=== PATIENT | male | born 1940 | race Caucasian/White ===

== ENCOUNTER → 2017-01-24 | Day surgery (SDC) | payer MEDICARE ==
[2017-01-18 10:24] VITALS: BMI 26.0
[~2017-01-24] MED LIST: BALANCED SALT IRRIG SOLN COMB2 15 ML IRRIG.SOLN IRRIGATION ONE; BUPIVACAINE (PF) 0.75% 5 ML, LIDOCAINE 4% (PF) 5 ML, HYALURONIDASE, HUMAN RECOMB 150 UNIT MISCELLANE ONE; EPINEPHrine (PF) 0.5 ML in BALANCED SALT IRRIG SOLN COMB2 500 ML IRRIGATION ONE; GENTAMICIN/PREDNISOL AC OPHTH OINT 3.5GM OPHTHALMIC ONE; HYALURONATE SODIUM INTRAOCULAR 1 EACH SYRINGE (10MG/ML) INTRAOCULA ONE; LACTATED RINGERS 1,000 ML IV SCH; LIDOCAINE 1% 20 ML VIAL (10MG/ML) FOR IV START INTRADERMA PRN; PROPOFOL 10 MG/ML 20 ML VIAL IV ONE; TIMOLOL 0.5% OPHTH SOLN (PF) 0.2 ML DROPERETTE OP ONE
[2017-01-24] MEDS: PHENYLEPHRINE 10% OPHTH DROPS 5 ML BTL OP ONE ×3 (10:29→10:42)
[2017-01-24] MEDS: CYCLOPENTOLATE 1% OPHTH SOLN 2 ML BTL OP ONE ×3 (10:31→10:44)
[2017-01-24] MEDS: FLURBIPROFEN 0.03% OPHTH DROPS 2.5 ML BTL OP ONE ×3 (10:33→10:46)
[2017-01-24 10:49] VITALS: TEMP 97.7
--- NOTE | 2017-01-24 12:34 | P.OP ---
Date of Procedure: 01/24/17 Preoperative Diagnosis: Postoperative Diagnosis: Procedure(s) Performed: PREOPERATIVE DIAGNOSIS: Cataract, left eye, Glaucoma, left eye POSTOPERATIVE DIAGNOSIS: Cataract, left eye Glaucoma, left eye. OPERATION: Phacoemulsification cataract, left eye. Placement of iStent, left eye. DESCRIPTION OF PROCEDURE: The patient was taken to the preoperative holding area. Intravenous Propofol was given so as to bring about adequate sedation. The following mixture was given for local anesthesia: 5 mL of 2% lidocaine, 5 mL of 0.75% Marcaine, and 1 mL of Wydase. Approximately 4 mL was injected in the retrobulbar space of the surgical eye. Additional 1 mL was then directed to the temporal area of the surgical eye. This was performed to allow adequate neurological block of the facial muscles. The patient was revived and then taken into the operative room. The patient was prepped and draped in the usual sterile manner for the operative eye. A lid speculum was put into position. The conjunctiva was resected back from the limbus in the 12 o'clock position. Bleeding was controlled with electrocautery. A #69 blade was then used and a half-thickness scleral incision approximately 1-mm posterior to the limbus was made on bare sclera. This was shelved in the clear cornea using a crescent knife. Next a 15-degree blade was used to make a stab incision at the 3 o' clock position at the corneolimbal interface. Keratome blade was then used and the superior wound was extended into the anterior chamber. Viscoelastic was injected into the anterior chamber and to maintain its form. The iStent was grasped and inserted into the inferior angle of the eye without difficulty. Next, a cystotome was used and a continuous anterior capsulotomy was made without difficulty. Hydrodissection using a blunt cannula and BSS was performed. Phaco probe was then employed and a groove extending from 12 to 6 o' clock in the lens was created. A Fitz wand was used through the stab incision so as to perform a divide and conquer technique. Next an irrigation aspiration probe was utilized and any residual cortex was removed from the eye. Again, viscoelastic was injected into the anterior chamber. An Christopher posterior chamber lens implant was placed in the cartridge and injected into the anterior chamber without difficulty. The Sinskey hook was utilized to spin the lens into position and this was again performed without any difficulty. The irrigation and aspiration probe was again employed and any residual viscoelastic was removed from the eye. Then BSS was injected into the limbal stab incision and the anterior chamber re-inflated. The conjunctiva was reapproximated using electrocautery. One drop of 0.25% Timoptic was placed over the corneal along with TobraDex ophthalmic ointment. Two sterile patches and a Jerome eye shield were taped into position. The patient was transported to the recovery room in stable condition. Implants: Pathology: none sent Condition: stable Disposition: same day Indications for Procedure: Operative Findings: Description of Procedure:
[2017-01-24 12:46] VITALS: RESP 18
[2017-01-24 13:02] VITALS: BP 163/73; PULSE 61
== END | disposition home or self-care (01) ==
LOC: OR 09:35
PROVIDERS: ATTEND Ophthalmology
DX: H26.9 Unspecified cataract (principal); H40.9 Unspecified glaucoma; Z79.82 Long term (current) use of aspirin; Z79.899 Other long term (current) drug therapy
CPT/HCPCS: 66984; 66183; V2632; C1783; J2001; J3470; J0171; J2704

== ENCOUNTER 2017-04-04 10:37 | Day surgery (SDC) | payer MEDICARE ==
[2017-03-31 09:12] VITALS: BMI 25.7
[~2017-04-04 10:37] MED LIST changes: -BALANCED SALT IRRIG SOLN COMB2 15 ML IRRIG.SOLN IRRIGATION ONE; -BUPIVACAINE (PF) 0.75% 5 ML, LIDOCAINE 4% (PF) 5 ML, HYALURONIDASE, HUMAN RECOMB 150 UNIT MISCELLANE ONE; -EPINEPHrine (PF) 0.5 ML in BALANCED SALT IRRIG SOLN COMB2 500 ML IRRIGATION ONE; -GENTAMICIN/PREDNISOL AC OPHTH OINT 3.5GM OPHTHALMIC ONE; -HYALURONATE SODIUM INTRAOCULAR 1 EACH SYRINGE (10MG/ML) INTRAOCULA ONE; -LIDOCAINE 1% 20 ML VIAL (10MG/ML) FOR IV START INTRADERMA PRN; -PROPOFOL 10 MG/ML 20 ML VIAL IV ONE; -TIMOLOL 0.5% OPHTH SOLN (PF) 0.2 ML DROPERETTE OP ONE
[2017-04-04] MEDS: CYCLOPENTOLATE 1% OPHTH SOLN 2 ML BTL OP ONE ×2 (11:35→11:44)
[2017-04-04] MEDS: PHENYLEPHRINE 10% OPHTH DROPS 5 ML BTL OP ONE ×2 (11:38→11:47)
[2017-04-04] MEDS: KETOROLAC 0.5% OPHTH DROPS 5 ML BTL OP ONE ×2 (11:41→12:01)
[2017-04-04 11:42] VITALS: RESP 18; TEMP 98.1
[2017-04-04] MEDS ORDERED: LIDOCAINE 1% INJ 10MG/ML (20 ML MDV) ONE (12:53)
[2017-04-04] MEDS ORDERED: PROPOFOL 10 MG/ML 20 ML VIAL IV ONE (12:53)
[2017-04-04] MEDS ORDERED: HYALURONATE SODIUM INTRAOCULAR 1 EACH SYRINGE (10MG/ML) INTRAOCULA ONE ×2 (12:56)
[2017-04-04] MEDS ORDERED: TIMOLOL 0.5% OPHTH SOLN (PF) 0.2 ML DROPERETTE RIGHT EYE ONE (12:56)
[2017-04-04] MEDS ORDERED: BALANCED SALT IRRIG SOLN COMB2 15 ML IRRIG.SOLN INTRAOCULA ONE (12:56)
[2017-04-04] MEDS ORDERED: EPINEPHrine (PF) 0.5 ML in BALANCED SALT IRRIG SOLN COMB2 500 ML IRRIGATION ONE (12:57)
--- NOTE | 2017-04-04 13:23 | P.OP ---
Date of Procedure: 04/04/17 Procedure(s) Performed: PREOPERATIVE DIAGNOSIS: Cataract, right eye. Glaucoma, right eye POSTOPERATIVE DIAGNOSIS: Cataract, right eye. Glaucoma, right eye. OPERATION: Phacoemulsification of cataract, placement of intraocular lens, placement of I-stent, right eye. DESCRIPTION OF PROCEDURE: The patient was taken to the preoperative holding area. Intravenous Propofol was given so as to bring about adequate sedation. The following mixture was given for local anesthesia: 5 mL of 2% lidocaine, 5 mL of 0.75% Marcaine, and 1 mL of Wydase. Approximately 4 mL was injected in the retrobulbar space of the surgical eye. Additional 1 mL was then directed to the temporal area of the surgical eye. This was performed to allow adequate neurological block of the facial muscles. The patient was revived and then taken into the operative room. The patient was prepped and draped in the usual sterile manner for the operative eye. A lid speculum was put into position. The conjunctiva was resected back from the limbus in the 12 o'clock position. Bleeding was controlled with electrocautery. A #69 blade was then used and a half-thickness scleral incision approximately 1-mm posterior to the limbus was made on bare sclera. This was shelved in the clear cornea using a crescent knife. Next a 15-degree blade was used to make a stab incision at the 3 o' clock position at the corneolimbal interface. Keratome blade was then used and the superior wound was extended into the anterior chamber. Viscoelastic was injected into the anterior chamber and to maintain its form. Using an angled gonioprism for guidance, an I-stent was placed in the inferior Schlemm's canal and tested for proper positioning. Next, a cystotome was used and a continuous anterior capsulotomy was made without difficulty. Hydrodissection using a blunt cannula and BSS was performed. Phaco probe was then employed and a groove extending from 12 to 6 o'clock in the lens was created. A Fitz wand was used through the stab incision so as to perform a divide and conquer technique. Next an irrigation aspiration probe was utilized and any residual cortex was removed from the eye. Again, viscoelastic was injected into the anterior chamber. An Christopher posterior chamber lens implant was placed in the cartridge and injected into the anterior chamber without difficulty. The Humansizedey hook was utilized to spin the lens into position and this was again performed without any difficulty. The irrigation and aspiration probe was again employed and any residual viscoelastic was removed from the eye. Then BSS was injected into the limbal stab incision and the anterior chamber re- inflated. The conjunctiva was reapproximated using electrocautery. One drop of 0.25% Timoptic was placed over the corneal along with TobraDex ophthalmic ointment. Two sterile patches and a Jerome eye shield were taped into position. The patient was transported to the recovery room in stable condition. Pathology: none sent Condition: stable Disposition: same day
[2017-04-04 13:44] VITALS: BP 147/65; PULSE 58
[2017-04-04] MEDS ORDERED: BUPIVACAINE (PF) 0.75% 5 ML, LIDOCAINE 4% (PF) 5 ML, HYALURONIDASE, HUMAN RECOMB 150 UNIT MISCELLANE ONE ×3 (23:00)
[2017-04-04] MEDS ORDERED: GENTAMICIN/PREDNISOL AC OPHTH OINT 3.5GM OPHTHALMIC ONE (23:00)
[2017-04-04] MEDS ORDERED: TIMOLOL 0.5% OPHTH SOLN (PF) 0.2 ML DROPERETTE OP ONE (23:00)
== END 2017-04-04 14:04 | disposition home or self-care (01) ==
LOC: OR 10:37
PROVIDERS: ATTEND Ophthalmology
DX: H26.9 Unspecified cataract (principal); H40.9 Unspecified glaucoma; N40.0 Benign prostatic hyperplasia without lower urinary tract symptoms; Z79.82 Long term (current) use of aspirin; Z79.899 Other long term (current) drug therapy; Z98.42 Cataract extraction status, left eye; Z96.1 Presence of intraocular lens
CPT/HCPCS: 0191T; 66984

== ENCOUNTER 2017-07-08 22:28 | Emergency (ER) | payer MEDICARE ==
--- NOTE | 2017-07-08 22:41 | ED ---
General Adult HPI - General Chief complaint: Dizziness Stated complaint: Elevated BP Time Seen by Provider: 07/08/17 22:40 Source: patient, family, RN notes reviewed, old records reviewed Mode of arrival: ambulatory Limitations: no limitations - History of Present Illness Initial comments: This is a 77-year-old male to the ER for evaluation today. Patient coming in for evaluation of dizziness. They're to 5 days of dizziness, episodic occasional. Patient states he has had history of vertigo and is been told multiple times needs to start blood pressure medication. Patient denies chest pain shortness of breath or headache. Patient states he gets a little bit of dizziness when he stands up or changes position. No headaches. No recent change in medication, denies drugs or alcohol - Related Data Home Medications Medication Instructions Recorded Confirmed Aspirin [Adult Low Dose Aspirin EC] 81 mg PO DAILY 01/18/17 07/08/17 Ginkgo Biloba [place] Extract [Ginkgo] 120 mg PO DAILY 01/18/17 07/08/17 Latanoprost Ophth [Xalatan 0.005%] 1 drops BOTH EYES HS 01/18/17 07/08/17 Tamsulosin HCl [Flomax] 0.4 mg PO HS 01/18/17 07/08/17 Allergies Allergy/AdvReac Type Severity Reaction Status Date / Time No Known Allergies Allergy Verified 07/08/17 22:36 Review of Systems ROS Statement: Those systems with pertinent positive or pertinent negative responses have been documented in the HPI. ROS Other: All systems not noted in ROS Statement are negative. Past Medical History Past Medical History: Prostate Disorder, Skin Disorder Additional Past Medical History / Comment(s): hx migraines, ezcema History of Any Multi-Drug Resistant Organisms: None Reported Past Surgical History: Adenoidectomy, Orthopedic Surgery, Tonsillectomy Additional Past Surgical History / Comment(s): duarte knee arthroscopy Past Anesthesia/Blood Transfusion Reactions: No Reported Reaction Past Psychological History: No Psychological Hx Reported Smoking Status: Former smoker Past Alcohol Use History: None Reported Past Drug Use History: None Reported - Past Family History Mother Family Medical History: No Reported History General Exam Limitations: no limitations General appearance: alert, in no apparent distress Head exam: Present: atraumatic, normocephalic, normal inspection Eye exam: Present: normal appearance, PERRL, EOMI. Absent: scleral icterus, conjunctival injection, periorbital swelling ENT exam: Present: normal exam, mucous membranes moist Neck exam: Present: normal inspection. Absent: tenderness, meningismus, lymphadenopathy Respiratory exam: Present: normal lung sounds bilaterally. Absent: respiratory distress, wheezes, rales, rhonchi, stridor Cardiovascular Exam: Present: regular rate, normal rhythm, normal heart sounds. Absent: systolic murmur, diastolic murmur, rubs, gallop, clicks GI/Abdominal exam: Present: soft, normal bowel sounds. Absent: distended, tenderness, guarding, rebound, rigid Extremities exam: Present: normal inspection, full ROM, normal capillary refill. Absent: tenderness, pedal edema, joint swelling, calf tenderness Back exam: Present: normal inspection Neurological exam: Present: alert, oriented X3, CN II-XII intact Psychiatric exam: Present: normal affect, normal mood Skin exam: Present: warm, dry, intact, normal color. Absent: rash Course Vital Signs 07/08/17 07/08/17 07/08/17 22:32 22:54 23:51 Temperature 97.4 F L Pulse Rate 82 80 71 Respiratory 18 18 16 Rate Blood Pressure 184/86 194/87 152/72 O2 Sat by Pulse 99 98 99 Oximetry - Reevaluation(s) Reevaluation #1: 07/09/17 00:37 Patient symptoms are resolved, improved Medical Decision Making - Medical Decision Making 77 male the ER for dizziness. New-onset dizziness. New-onset elevated blood pressure. Patient be treated for blood pressure 1, CT labwork is normal EKG negative. Patient can be discharged home - Lab Data Result diagrams: 07/08/17 22:40 07/08/17 22:40 Lab Results 07/08/17 07/08/17 07/08/17 Range/Units 22:40 22:40 22:40 WBC 8.8 (3.8-10.6) k/uL RBC 4.81 (4.30-5.90) m/uL Hgb 14.0 (13.0-17.5) gm/dL Hct 43.2 (39.0-53.0) % MCV 89.7 (80.0-100.0) fL MCH 29.1 (25.0-35.0) pg MCHC 32.4 (31.0-37.0) g/dL RDW 14.0 (11.5-15.5) % Plt Count 207 (150-450) k/uL Neutrophils % 76 % Lymphocytes % 14 % Monocytes % 5 % Eosinophils % 2 % Basophils % 1 % Neutrophils # 6.7 (1.3-7.7) k/uL Lymphocytes # 1.3 (1.0-4.8) k/uL Monocytes # 0.4 (0-1.0) k/uL Eosinophils # 0.2 (0-0.7) k/uL Basophils # 0.1 (0-0.2) k/uL PT (9.0-12.0) sec INR (<1.2) APTT (22.0-30.0) sec Sodium 140 (137-145) mmol/L Potassium 4.3 (3.5-5.1) mmol/L Chloride 102 (98-107) mmol/L Carbon Dioxide 29 (22-30) mmol/L Anion Gap 9 mmol/L BUN 28 H (9-20) mg/dL Creatinine 1.10 (0.66-1.25) mg/dL Est GFR (MDRD) Af Amer >60 (>60 ml/min/1.73 sqM) Est GFR (MDRD) Non-Af >60 (>60 ml/min/1.73 sqM) Glucose 125 H (74-99) mg/dL Calcium 9.9 (8.4-10.2) mg/dL Phosphorus 3.5 (2.5-4.5) mg/dL Magnesium 2.0 (1.6-2.3) mg/dL Total Bilirubin 0.3 (0.2-1.3) mg/dL AST 21 (17-59) U/L ALT 38 (21-72) U/L Alkaline Phosphatase 108 (38-126) U/L Total Creatine Kinase 58 (55-170) U/L CK-MB (CK-2) 1.1 (0.0-2.4) ng/mL CK-MB (CK-2) Rel Index 1.9 Troponin I 0.012 (0.000-0.034) ng/mL Total Protein 6.9 (6.3-8.2) g/dL Albumin 4.3 (3.5-5.0) g/dL 07/08/17 Range/Units 22:40 WBC (3.8-10.6) k/uL RBC (4.30-5.90) m/uL Hgb (13.0-17.5) gm/dL Hct (39.0-53.0) % MCV (80.0-100.0) fL MCH (25.0-35.0) pg MCHC (31.0-37.0) g/dL RDW (11.5-15.5) % Plt Count (150-450) k/uL Neutrophils % % Lymphocytes % % Monocytes % % Eosinophils % % Basophils % % Neutrophils # (1.3-7.7) k/uL Lymphocytes # (1.0-4.8) k/uL Monocytes # (0-1.0) k/uL Eosinophils # (0-0.7) k/uL Basophils # (0-0.2) k/uL PT 10.0 (9.0-12.0) sec INR 1.0 (<1.2) APTT 24.0 (22.0-30.0) sec Sodium (137-145) mmol/L Potassium (3.5-5.1) mmol/L Chloride (98-107) mmol/L Carbon Dioxide (22-30) mmol/L Anion Gap mmol/L BUN (9-20) mg/dL Creatinine (0.66-1.25) mg/dL Est GFR (MDRD) Af Amer (>60 ml/min/1.73 sqM) Est GFR (MDRD) Non-Af (>60 ml/min/1.73 sqM) Glucose (74-99) mg/dL Calcium (8.4-10.2) mg/dL Phosphorus (2.5-4.5) mg/dL Magnesium (1.6-2.3) mg/dL Total Bilirubin (0.2-1.3) mg/dL AST (17-59) U/L ALT (21-72) U/L Alkaline Phosphatase (38-126) U/L Total Creatine Kinase (55-170) U/L CK-MB (CK-2) (0.0-2.4) ng/mL CK-MB (CK-2) Rel Index Troponin I (0.000-0.034) ng/mL Total Protein (6.3-8.2) g/dL Albumin (3.5-5.0) g/dL - Radiology Data Radiology results: report reviewed (CT brain is negative), image reviewed Disposition Clinical Impression: Hypertension, Dizziness Disposition: HOME SELF-CARE Condition: Good Instructions: Dizziness (ED), Hypertension (ED) Referrals: Milena Linton MD [Primary Care Provider] - 1-2 days
[2017-07-08] MEDS ORDERED: LABETALOL 5 MG/ML VIAL MDV IVP STA (23:06)
[2017-07-08] MEDS ORDERED: SODIUM CHLORIDE 0.9% 1,000 ML IV STA (23:06)
[2017-07-08 23:17] LABS: Basophils # (A) 0.1 k/uL (0-0.2); Basophils % (A) 1 %; Eosinophils # (A) 0.2 k/uL (0-0.7); Eosinophils % (A) 2 %; HCT 43.2 % (39.0-53.0); Lymphocytes # (A) 1.3 k/uL (1.0-4.8); Lymphocytes % (A) 14 %; MCH 29.1 pg (25.0-35.0); MCHC 32.4 g/dL (31.0-37.0); MCV 89.7 fL (80.0-100.0); Mean Platelet Volume 7.2; Monocytes # (A) 0.4 k/uL (0-1.0); Monocytes % (A) 5 %; Neutrophils # (A) 6.7 k/uL (1.3-7.7); Neutrophils % (A) 76 %; Platelet Count 207 k/uL (150-450); RBC 4.81 m/uL (4.30-5.90); WBC 8.8 k/uL (3.8-10.6)
[2017-07-08 23:34] LABS: ALT 38 U/L (21-72); AST 21 U/L (17-59); Albumin 4.3 g/dL (3.5-5.0); Alkaline Phosphatase 108 U/L (38-126); Anion Gap 9 mmol/L; Blood Urea Nitrogen 28 mg/dL (9-20); Calcium 9.9 mg/dL (8.4-10.2); Carbon Dioxide 29 mmol/L (22-30); Chloride 102 mmol/L (98-107); Glucose 125 mg/dL (74-99); Phosphorus 3.5 mg/dL (2.5-4.5); Sodium 140 mmol/L (137-145); Total Bilirubin 0.3 mg/dL (0.2-1.3); Total Protein 6.9 g/dL (6.3-8.2)
[2017-07-08 23:37] LABS: Potassium 4.3 mmol/L (3.5-5.1)
--- NOTE | 2017-07-08 23:51 | CT ---
EXAM: CT Head Without Intravenous Contrast. CLINICAL HISTORY: Reason: weakness TECHNIQUE: Axial computed tomography images of the head/brain without intravenous contrast. CTDI is 13.7 mGy and DLP is 57.4 mGy-cm. This CT exam was performed using one or more of the following dose reduction techniques: automated exposure control, adjustment of the mA and/or kV according to patient size, and/or use of iterative reconstruction technique. COMPARISON: No relevant prior studies available. FINDINGS: Brain: Unremarkable. No hemorrhage. No significant white matter disease. No edema. Ventricles: Unremarkable. No ventriculomegaly. Bones: No acute fracture. Sinuses: Unremarkable as visualized. No acute sinusitis. Mastoid air cells: Unremarkable as visualized. No mastoid effusion. IMPRESSION: No acute intracranial abnormality.
[2017-07-08 23:57] LABS: Creatine Kinase MB 1.1 ng/mL (0.0-2.4)
[2017-07-09 00:01] LABS: Troponin I 0.012 ng/mL (0.000-0.034)
[2017-07-09 01:02] VITALS: BP 164/79; PULSE 72; RESP 15; TEMP 98.1
== END 2017-07-09 00:57 | disposition home or self-care (01) ==
LOC: EC 22:28
DX: I10 Essential (primary) hypertension (principal); R42 Dizziness and giddiness; Z86.69 Personal history of other diseases of the nervous system and sense organs; Z87.891 Personal history of nicotine dependence; Z79.82 Long term (current) use of aspirin; Z79.899 Other long term (current) drug therapy
CPT/HCPCS: 36415; 70450; 80053; 82550; 82553; 83735; 84100; 84484; 85025; 85610; 85730; 93005; 96361; 96374; 99285

== ENCOUNTER → 2017-09-20 | Outpatient (CLI) | payer MEDICARE ==
--- NOTE | 2017-09-20 09:29 | XR ---
EXAMINATION TYPE: XR chest 2V DATE OF EXAM: 09/20/2017 COMPARISON: NONE HISTORY: Physical examination TECHNIQUE: Frontal and lateral views of the chest are obtained. FINDINGS: There is no focal air space opacity, pleural effusion, or pneumothorax seen. The cardiac silhouette size is within normal limits. The osseous structures are intact. Biapical pleural thicke rosina is incidentally noted. Multilevel degenerative changes of the thoracic spine are seen. There is tortuosity of the descending thoracic aorta. IMPRESSION: No acute cardiopulmonary process.
[2017-09-20 09:58] LABS: Basophils # (A) 0.1 k/uL (0-0.2); Basophils % (A) 1 %; Eosinophils # (A) 0.2 k/uL (0-0.7); Eosinophils % (A) 4 %; HCT 43.4 % (39.0-53.0); HGB 14.2 gm/dL (13.0-17.5); Lymphocytes # (A) 1.1 k/uL (1.0-4.8); Lymphocytes % (A) 20 %; MCH 28.7 pg (25.0-35.0); MCHC 32.7 g/dL (31.0-37.0); MCV 87.9 fL (80.0-100.0); Mean Platelet Volume 6.9; Monocytes # (A) 0.3 k/uL (0-1.0); Monocytes % (A) 6 %; Neutrophils # (A) 3.6 k/uL (1.3-7.7); Neutrophils % (A) 66 %; Platelet Count 188 k/uL (150-450); RBC 4.94 m/uL (4.30-5.90); WBC 5.5 k/uL (3.8-10.6)
[2017-09-20 10:02] LABS: ALT 21 U/L (21-72); AST 17 U/L (17-59); Alkaline Phosphatase 87 U/L (38-126); Anion Gap 8 mmol/L; Blood Urea Nitrogen 26 mg/dL (9-20); Calcium 9.8 mg/dL (8.4-10.2); Carbon Dioxide 31 mmol/L (22-30); Chloride 102 mmol/L (98-107); Cholesterol 190 mg/dL (<200); Creatine Kinase 46 U/L (55-170); Glucose 115 mg/dL (74-99); HDL Cholesterol 56 mg/dL (40-60); LDL Cholesterol,Calculated 119 mg/dL (0-99); Potassium 5.1 mmol/L (3.5-5.1); Sodium 141 mmol/L (137-145); Total Bilirubin 0.5 mg/dL (0.2-1.3); Total Protein 6.5 g/dL (6.3-8.2); Triglycerides 77 mg/dL (<150); Uric Acid 5.4 mg/dL (3.5-8.5)
[2017-09-20 11:47] LABS: C Reactive Protein <5.0 mg/L (<10.0)
[2017-09-20 14:01] LABS: Erythrocyte Sedimentation Rate 5 mm/hr (0-15)
[2017-09-20 16:18] LABS: Vitamin D 25 Hydroxy 23.3 ng/mL (30.0-100.0)
[2017-09-20 17:24] LABS: Hepatitis C IgG Antibody Non-Reactive (Non-Reactive)
[2017-09-20 22:55] LABS: Hemoglobin A1C 6.1 % (4.0-6.0)
== END | disposition home or self-care (01) ==
LOC: LABWHC1 08:41
PROVIDERS: ATTEND Internal Medicine
DX: J44.9 Chronic obstructive pulmonary disease, unspecified (principal); I27.20 Pulmonary hypertension, unspecified; E55.9 Vitamin D deficiency, unspecified; E78.5 Hyperlipidemia, unspecified; N40.0 Benign prostatic hyperplasia without lower urinary tract symptoms
CPT/HCPCS: 36415; 71046; 80053; 80061; 82306; 82550; 83036; 84153; 84443; 84550; 85025; 85652; 86140; 86803

== ENCOUNTER → 2017-10-19 | Outpatient (CLI) | payer MEDICARE ==
--- NOTE | 2017-10-20 07:51 | ECHOF ---
Referral Reason:I10 Hypertension / Z01.31 Elevated blood pressure MEASUREMENTS -------- HEIGHT: 177.8 cm WEIGHT: 85.3 kg BP: 170/79 RVIDd: 3.2 cm (< 3.3) IVSd: 1.0 cm (0.6 - 1.1) LVIDd: 4.7 cm (3.9 - 5.3) LVPWd: 1.0 cm (0.6 - 1.1) IVSs: 1.5 cm LVIDs: 3.3 cm LVPWs: 1.7 cm LA Diam: 3.1 cm (2.7 - 3.8) LAESV Index (A-L): 32.23 ml/m Ao Diam: 3.7 cm (2.0 - 3.7) AV Cusp: 2.1 cm (1.5 - 2.6) MV EXCURSION: 12.755 mm (> 18.000) MV EF SLOPE: 39 mm/s (70 - 150) EPSS: 0.5 cm MV E Elia: 0.72 m/s MV DecT: 312 ms MV A Elia: 1.00 m/s MV E/A Ratio: 0.73 RAP: 5.00 mmHg RVSP: 25.10 mmHg FINDINGS -------- Sinus rhythm with extra systolic beats. This was a technically adequate study. The left ventricular size is normal. Left ventricular wall thickness is normal. Overall left vent ricular systolic function is low-normal with, an EF between 50 - 55 %. The right ventricle is normal in size and function. LA is midly dilated 29-33ml/m2. The right atrium is normal in size. There is mild aortic valve sclerosis. Trace amount of aortic regurgitation. The mitral valve leaflets are mildly thickened. Mild mitral annular calcification present. Mild-t o-moderate mitral regurgitation is present. Mild tricuspid regurgitation present. There is mild pulmonary hypertension. The right ventricular systolic pressure, as measured by Doppler, is 25.10mmHg. Trace/mild (physiologic) pulmonic regurgitation. The aortic root size is normal. Normal inferior vena cava with normal inspiratory collapse consistent with estimated right atrial pre ssure of 5 mmHg. There is no pericardial effusion. CONCLUSIONS -------- 1. Sinus rhythm with extra systolic beats. 2. This was a technically adequate study. 3. The left ventricular size is normal. 4. Left ventricular wall thickness is normal. 5. Overall left ventricular systolic function is low-normal with, an EF between 50 - 55 %. 6. The right ventricle is normal in size and function. 7. LA is midly dilated 29-33ml/m2. 8. The right atrium is normal in size. 9. There is mild aortic valve sclerosis. 10. Trace amount of aortic regurgitation. 11. The mitral valve leaflets are mildly thickened. 12. Mild mitral annular calcification present. 13. [id number] mitral regurgitation is present. 14. Mild tricuspid regurgitation present. 15. There is mild pulmonary hypertension. 16. The right ventricular systolic pressure, as measured by Doppler, is 25.10mmHg. 17. Trace/mild (physiologic) pulmonic regurgitation. 18. The aortic root size is normal. 19. Normal inferior vena cava with normal inspiratory collapse consistent with estimated right atrial pressure of 5 mmHg. 20. There is no pericardial effusion. BL[employer] LEATHER TRIMMER: Marisa Zafar RDCS
== END | disposition home or self-care (01) ==
LOC: RADECHMAIN 16:18
PROVIDERS: ATTEND Internal Medicine
DX: I08.3 Combined rheumatic disorders of mitral, aortic and tricuspid valves (principal); I27.20 Pulmonary hypertension, unspecified
CPT/HCPCS: 93306

== ENCOUNTER → 2018-02-13 | Outpatient (CLI) | payer MEDICARE ==
[2018-02-13 19:43] LABS: Iron Saturation 23.44 (15.00-50.00)
== END | disposition home or self-care (01) ==
LOC: LABWHC1 11:16
PROVIDERS: ATTEND Internal Medicine
DX: D64.9 Anemia, unspecified (principal)
CPT/HCPCS: 36415; 82728; 83540; 83550

== ENCOUNTER 2020-10-22 20:23 | Inpatient (IN) | payer MEDICARE ==
--- NOTE | 2020-10-22 20:46 | ED ---
SOB HPI - General Chief Complaint: Shortness of Breath Stated Complaint: ORTIZ Time Seen by Provider: 10/22/20 20:27 Source: patient, EMS, RN notes reviewed Mode of arrival: EMS Limitations: no limitations - History of Present Illness Initial Comments: Patient is a 80-year-old male that presents to emergency department with Covid symptoms for the past 3 weeks. He was diagnosed by his primary care 3 weeks ago and was treated by his primary care. He noted that he has not been feeling any better. EMS noted that his oxygen saturation at home was 87 on room air suicidal on 2 L of oxygen via nasal cannula. He was seen while laying in bed in no apparent distress or pain. He noted that he was just feeling slightly nauseous which she treats most likely to the right over. He did state that he is hard of hearing. He denied any chest pain headache vomiting diarrhea constipation fever fatigue chills. - Related Data Home Medications Medication Instructions Recorded Confirmed Aspirin [Adult Low Dose Aspirin EC] 81 mg PO DAILY 01/18/17 07/08/17 Ginkgo Biloba Minco Extract [Ginkgo] 120 mg PO DAILY 01/18/17 07/08/17 Latanoprost Ophth [Xalatan 0.005%] 1 drops BOTH EYES HS 01/18/17 07/08/17 Tamsulosin HCl [Flomax] 0.4 mg PO HS 01/18/17 07/08/17 Previous Rx's Medication Instructions Recorded Metoprolol Tartrate [Lopressor] 50 mg PO BID #60 tab 07/09/17 Allergies Allergy/AdvReac Type Severity Reaction Status Date / Time No Known Allergies Allergy Verified 07/08/17 22:36 Review of Systems ROS Statement: Those systems with pertinent positive or pertinent negative responses have been documented in the HPI. ROS Other: All systems not noted in ROS Statement are negative. Past Medical History Past Medical History: Prostate Disorder, Skin Disorder Additional Past Medical History / Comment(s): hx migraines, ezcema History of Any Multi-Drug Resistant Organisms: None Reported Past Surgical History: Adenoidectomy, Orthopedic Surgery, Tonsillectomy Additional Past Surgical History / Comment(s): duarte knee arthroscopy Past Anesthesia/Blood Transfusion Reactions: No Reported Reaction Past Psychological History: No Psychological Hx Reported Past Alcohol Use History: None Reported Past Drug Use History: None Reported - Past Family History Mother Family Medical History: No Reported History General Exam Limitations: no limitations General appearance: alert, in no apparent distress Head exam: Present: atraumatic, normocephalic, normal inspection Eye exam: Present: normal appearance, PERRL, EOMI. Absent: scleral icterus, conjunctival injection, periorbital swelling ENT exam: Present: normal exam, mucous membranes moist, other (Hard of hearing) Neck exam: Present: normal inspection. Absent: tenderness, meningismus, lymphadenopathy Respiratory exam: Present: normal lung sounds bilaterally. Absent: respiratory distress, wheezes, rales, rhonchi, stridor Cardiovascular Exam: Present: regular rate, normal rhythm, normal heart sounds. Absent: systolic murmur, diastolic murmur, rubs, gallop, clicks GI/Abdominal exam: Present: soft, normal bowel sounds. Absent: distended, tenderness, guarding, rebound, rigid Extremities exam: Present: normal inspection, full ROM, normal capillary refill. Absent: tenderness, pedal edema, joint swelling, calf tenderness Neurological exam: Present: alert, oriented X3, CN II-XII intact Psychiatric exam: Present: normal affect, normal mood Skin exam: Present: warm, dry, intact, normal color. Absent: rash Course Vital Signs 10/22/20 10/22/20 10/22/20 20:24 20:34 22:45 Temperature 98.4 F Pulse Rate 96 90 Respiratory 20 20 20 Rate Blood Pressure 174/88 149/82 O2 Sat by Pulse 93 L 94 L Oximetry Medical Decision Making - Medical Decision Making 80-year-old male complaining of Covid symptoms 3 weeks. Labs, chest x-ray, Covid test, reproduction technician, 2 L of oxygen via nasal cannula ordered. Elevated d-dimer at 0.76, CT chest angiogram ordered. Labs: Lactase dehydrogenase 629, C-reactive protein 19.[address] Daley, patient is going to be admitted for observation. KAMLESH Menendez was consult good, Dr. Mcclelland will accept the admit - Lab Data Result diagrams: 10/22/20 20:40 10/22/20 20:40 Lab Results 10/22/20 10/22/20 10/22/20 Range/Units 20:40 20:40 20:40 WBC 10.4 (3.8-10.6) k/uL RBC 4.66 (4.30-5.90) m/uL Hgb 13.5 (13.0-17.5) gm/dL Hct 39.6 (39.0-53.0) % MCV 84.9 (80.0-100.0) fL MCH 29.0 (25.0-35.0) pg MCHC 34.2 (31.0-37.0) g/dL RDW 13.3 (11.5-15.5) % Plt Count 192 (150-450) k/uL MPV 7.0 Neutrophils % 92 % Lymphocytes % 4 % Monocytes % 3 % Eosinophils % 0 % Basophils % 0 % Neutrophils # 9.6 H (1.3-7.7) k/uL Lymphocytes # 0.4 L (1.0-4.8) k/uL Monocytes # 0.4 (0-1.0) k/uL Eosinophils # 0.0 (0-0.7) k/uL Basophils # 0.0 (0-0.2) k/uL PT 10.7 (9.0-12.0) sec INR 1.0 (<1.2) APTT 24.0 (22.0-30.0) sec D-Dimer 0.76 H (<0.60) mg/L FEU Sodium 128 L (137-145) mmol/L Potassium 3.9 (3.5-5.1) mmol/L Chloride 96 L (98-107) mmol/L Carbon Dioxide 27 (22-30) mmol/L Anion Gap 5 mmol/L BUN 32 H (9-20) mg/dL Creatinine 0.94 (0.66-1.25) mg/dL Est GFR (CKD-EPI)AfAm 89 (>60 ml/min/1.73 sqM) Est GFR (CKD-EPI)NonAf 77 (>60 ml/min/1.73 sqM) Glucose 196 H (74-99) mg/dL Plasma Lactic Acid Cruz (0.7-2.0) mmol/L Calcium 8.8 (8.4-10.2) mg/dL Magnesium 2.1 (1.6-2.3) mg/dL Total Bilirubin 1.2 (0.2-1.3) mg/dL AST 24 (17-59) U/L ALT 24 (4-49) U/L Alkaline Phosphatase 174 H (38-126) U/L Lactate Dehydrogenase 629 H (313-618) U/L C-Reactive Protein 19.7 H (<1.0) mg/dL Total Protein 6.0 L (6.3-8.2) g/dL Albumin 3.3 L (3.5-5.0) g/dL Coronavirus (PCR) (Not Detectd) 10/22/20 10/22/20 Range/Units 20:40 20:40 WBC (3.8-10.6) k/uL RBC (4.30-5.90) m/uL Hgb (13.0-17.5) gm/dL Hct (39.0-53.0) % MCV (80.0-100.0) fL MCH (25.0-35.0) pg MCHC (31.0-37.0) g/dL RDW (11.5-15.5) % Plt Count (150-450) k/uL MPV Neutrophils % % Lymphocytes % % Monocytes % % Eosinophils % % Basophils % % Neutrophils # (1.3-7.7) k/uL Lymphocytes # (1.0-4.8) k/uL Monocytes # (0-1.0) k/uL Eosinophils # (0-0.7) k/uL Basophils # (0-0.2) k/uL PT (9.0-12.0) sec INR (<1.2) APTT (22.0-30.0) sec D-Dimer (<0.60) mg/L FEU Sodium (137-145) mmol/L Potassium (3.5-5.1) mmol/L Chloride (98-107) mmol/L Carbon Dioxide (22-30) mmol/L Anion Gap mmol/L BUN (9-20) mg/dL Creatinine (0.66-1.25) mg/dL Est GFR (CKD-EPI)AfAm (>60 ml/min/1.73 sqM) Est GFR (CKD-EPI)NonAf (>60 ml/min/1.73 sqM) Glucose (74-99) mg/dL Plasma Lactic Acid Cruz 1.2 (0.7-2.0) mmol/L Calcium (8.4-10.2) mg/dL Magnesium (1.6-2.3) mg/dL Total Bilirubin (0.2-1.3) mg/dL AST (17-59) U/L ALT (4-49) U/L Alkaline Phosphatase (38-126) U/L Lactate Dehydrogenase (313-618) U/L C-Reactive Protein (<1.0) mg/dL Total Protein (6.3-8.2) g/dL Albumin (3.5-5.0) g/dL Coronavirus (PCR) Detected A (Not Detectd) - Radiology Data Radiology results: report reviewed, image reviewed Chest x-ray: Scattered infiltrates throughout both lung vigil compatible with [place] [address] chest: No evidence of pulmonary embolism. Patchy bilateral pulmonary infiltrates consistent with pneumonia. Disposition Clinical Impression: Pneumonia due to COVID-19 virus, Hypoxia Disposition: ADMITTED IP TO THIS HOSP Condition: Stable Is patient prescribed a controlled substance at d/c from ED?: No Referrals: None,Stated [REFERRING] - 1-2 days Time of Disposition: 23:01
--- NOTE | 2020-10-22 21:09 | XR ---
EXAMINATION TYPE: XR chest 1V portable DATE OF EXAM: 10/22/2020 HISTORY: Shortness of breath. COMPARISON: 09/20/2017 TECHNIQUE: Single view of the chest is submitted. FINDINGS: Demonstrated are scattered senescent parenchymal change. Scattered infiltrates throughout both lung f ields compatible with Covid 19 pneumonia. The heart is stable. Hilar and mediastinal structures are within normal limits. Degenerative changes are seen of the dorsal spine. IMPRESSION: 1. Scattered infiltrates throughout both lung vigil compatible with Covid 19 pneumonia.
[2020-10-22 21:17] LABS: Basophils % (A) 0 %; Eosinophils % (A) 0 %; HCT 39.6 % (39.0-53.0); HGB 13.5 gm/dL (13.0-17.5); Lymphocytes # (A) 0.4 k/uL (1.0-4.8); Lymphocytes % (A) 4 %; MCHC 34.2 g/dL (31.0-37.0); MCV 84.9 fL (80.0-100.0); Monocytes # (A) 0.4 k/uL (0-1.0); Monocytes % (A) 3 %; Neutrophils # (A) 9.6 k/uL (1.3-7.7); Neutrophils % (A) 92 %; Platelet Count 192 k/uL (150-450); RBC 4.66 m/uL (4.30-5.90); RDW 13.3 % (11.5-15.5); WBC 10.4 k/uL (3.8-10.6)
[2020-10-22 21:33] LABS: Prothrombin Time 10.7 sec (9.0-12.0)
[2020-10-22 21:36] LABS: Albumin 3.3 g/dL (3.5-5.0); Calcium 8.8 mg/dL (8.4-10.2); Magnesium 2.1 mg/dL (1.6-2.3); Potassium 3.9 mmol/L (3.5-5.1); Total Bilirubin 1.2 mg/dL (0.2-1.3)
[2020-10-22 21:49] LABS: C Reactive Protein 19.7 mg/dL (<1.0)
[2020-10-22 21:52] LABS: D-Dimer 0.76 mg/L FEU (<0.60)
--- NOTE | 2020-10-22 22:55 | CT ---
EXAMINATION TYPE: CT chest angio for PE DATE OF EXAM: 10/22/2020 COMPARISON: None HISTORY: Elevated d-dimer. Chest pain. CT DLP: mGycm Automated exposure control for dose reduction was used. CONTRAST: The contrast was Isovue 100 mL. There are 3-D post processed images. Images obtained from the thoracic inlet to the diaphragm. There is extensive patchy peripheral pulmonary interstitial and airspace infiltrates. This is more co ncentrated in the posterior lung vigil. Thoracic aorta is atheromatous. Heart size is fairly normal. There is no pericardial effusion. There is no pleural effusion. Upper abdominal soft tissues are int act. There are no hilar masses. There is no mediastinal adenopathy. I see no sign of aortic aneurysm or di ssection. Ascending aorta measures 3.7 cm. There is no evidence of filling defect in the pulmonary arteries. Thoracic spine is intact. There is slight wedging of T8 vertebra 20%. There is also T6 wedging 15%. IMPRESSION: No evidence of pulmonary embolism. Patchy bilateral pulmonary infiltrates consistent with pneumonia. Mild thoracic compression fractures are probably old.
[2020-10-22] MEDS ORDERED: ONDANSETRON 4 MG/2 ML VIAL IVP PRN (23:00)
[2020-10-22] MEDS ORDERED: NALOXONE 0.4 MG/ML 1 ML VIAL IV PRN (23:00)
[2020-10-23] MEDS: SODIUM CHLORIDE 0.9% 1,000 ML IV SCH ×2 (00:40→08:15)
[2020-10-23 03:49] LABS: Ferritin 697.7 ng/mL (22.0-322.0)
[2020-10-23] MEDS: ACETAMINOPHEN TAB 325 MG TAB PO PRN (07:56)
[2020-10-23] MEDS: ENOXAPARIN 40 MG/0.4 ML SYRINGE SQ SCH (07:57)
[2020-10-23] MEDS: FAMOTIDINE 20 MG TAB PO SCH (07:57)
[2020-10-23] MEDS: CHOLECALCIFEROL 25 MCG (1000 IU) TABLET PO SCH (07:57)
[2020-10-23] MEDS: ASCORBIC ACID 500 MG TAB PO SCH (07:57)
[2020-10-23] MEDS: dexAMETHasone 2 MG TAB PO SCH (07:57)
[2020-10-23] MEDS: METOPROLOL TARTRATE 12.5 MG TAB PO SCH ×2 (07:57→20:05)
[2020-10-23] MEDS: TAMSULOSIN 0.4 MG CAP.ER.24H PO SCH ×2 (07:58→20:05)
[2020-10-23] MEDS: AMOXIC-POT CLAV 875-125MG 1 EACH TAB PO SCH ×2 (08:15→20:05)
--- NOTE | 2020-10-23 08:59 | P.HPIM ---
History of Present Illness This is a pleasant 80 years old male with past medical history of hypertension, migraine, benign prostatic hypertrophy. Presents because of feeling sick for 3 weeks and dyspnea. Yesterday he came to the hospital because the daughter made him do that. He's been having dry cough, dyspnea especially with exertion, he noticed when he go up stairs he is more short of breath than before. He has decreased appetite and was not eating well for the last 4 days. No chest pain or abdominal pain. No diarrhea. he wasn't feeling well and developed symptoms with his together for the last 2-1/2-3 weeks , they contacted their friend who is a physician and fast foods worker in [place] who prescribed them ivermectin, prednisone and Z-[place]. He denies smoking, alcohol or illicit drug Vitals stable on admission and patient is afebrile. He is saturating 94% on 2 L oxygen via nasal cannula Labs showing lymphopenia, d-dimer slightly up at 0.76 which is within the reference range and it is corrected for age. Sodium mildly low at 128. Creatinine normal at 0.9, liver enzymes not elevated. Lactic dehydrogenase high at 629, elevated C-reactive protein 19.7. Pro- calcitonin is elevated at 0.34. Rivera virus is detected CTA of the chest: No evidence of pulmonary embolism. Patchy bilateral pulmonary infiltrates consistent with pneumonia. Mild thoracic compression fractures probably old. In the emergency room patient received normal saline at 75 mL/h Review of Systems CONSTITUTIONAL: No fever, no malaise, no fatigue. HEENT: No recent visual problems or hearing problems. Denied any sore throat. CARDIOVASCULAR: No orthopnea, PND, no palpitations, no syncope. PULMONARY: No shortness of breath, no cough, no hemoptysis. GASTROINTESTINAL: No diarrhea, no nausea, no vomiting, no abdominal pain. Normoactive bowel sounds. NEUROLOGICAL: No headaches, no weakness, no numbness. HEMATOLOGICAL: Denies any bleeding or petechiae. GENITOURINARY: Denies any burning micturition, frequency, or urgency. MUSCULOSKELETAL/RHEUMATOLOGICAL: Denies any joint pain, swelling, or any muscle pain. ENDOCRINE: Denies any polyuria or polydipsia. Past Medical History Past Medical History: Hypertension, Prostate Disorder, Skin Disorder Additional Past Medical History / Comment(s): hx migraines, ezcema History of Any Multi-Drug Resistant Organisms: None Reported Past Surgical History: Adenoidectomy, Orthopedic Surgery, Tonsillectomy Additional Past Surgical History / Comment(s): duarte knee arthroscopy Past Anesthesia/Blood Transfusion Reactions: No Reported Reaction Past Psychological History: No Psychological Hx Reported Smoking Status: Former smoker, Never smoker Past Alcohol Use History: None Reported Additional Past Alcohol Use History / Comment(s): quit smoking 30 yrs ago, smoked on and off from age 19, 1PPD Past Drug Use History: None Reported - Past Family History Mother Family Medical History: No Reported History Medications and Allergies Home Medications Medication Instructions Recorded Confirmed Type Tamsulosin HCl [Flomax] 0.4 mg PO BID 01/18/17 10/22/20 History Metoprolol Tartrate [Lopressor] 12.5 mg PO BID 10/22/20 10/22/20 History Allergies Allergy/AdvReac Type Severity Reaction Status Date / Time No Known Allergies Allergy Verified 10/22/20 23:03 Physical Exam Vitals: Vital Signs Temp Pulse Pulse Resp BP BP Pulse Ox 10/23/20 06:07 98.7 F 86 161/76 94 L 10/23/20 01:52 98.6 F 86 137/75 94 L 10/23/20 00:03 99.0 F 85 18 164/81 93 L 10/22/20 22:45 90 20 149/82 94 L 10/22/20 20:34 20 10/22/20 20:24 98.4 F 96 20 174/88 93 L Intake and Output 10/22/20 10/23/20 10/23/20 22:59 06:59 14:59 Other: # Voids 1 Weight 86.183 kg 86.183 kg GENERAL: The patient is alert and oriented x3, not in any acute distress. Well developed, well nourished. HEENT: Pupils are round and equally reacting to light. EOMI. No scleral icterus. No conjunctival pallor. Normocephalic, atraumatic. No pharyngeal erythema. No thyromegaly. CARDIOVASCULAR: S1 and S2 present. No murmurs, rubs, or gallops. -PULMONARY: Chest is clear to auscultation, no wheezing . Mild basal crackles ABDOMEN: Soft, nontender, nondistended, normoactive bowel sounds. No palpable organomegaly. MUSCULOSKELETAL: No joint swelling or deformity. EXTREMITIES: No cyanosis, clubbing, or pedal edema. NEUROLOGICAL: Gross neurological examination did not reveal any focal deficits. SKIN: No rashes. No petechiae Results CBC & Chem 7: 10/22/20 20:40 10/22/20 20:40 Labs: Abnormal Lab Results - Last 24 Hours (Table) 10/22/20 10/22/20 10/22/20 Range/Units 20:40 20:40 20:40 Neutrophils # 9.6 H (1.3-7.7) k/uL Lymphocytes # 0.4 L (1.0-4.8) k/uL D-Dimer 0.76 H (<0.60) mg/L FEU Sodium 128 L (137-145) mmol/L Chloride 96 L (98-107) mmol/L BUN 32 H (9-20) mg/dL Glucose 196 H (74-99) mg/dL Ferritin 697.7 H (22.0-322.0) ng/mL Alkaline Phosphatase 174 H (38-126) U/L Lactate Dehydrogenase 629 H (313-618) U/L C-Reactive Protein 19.7 H (<1.0) mg/dL Total Protein 6.0 L (6.3-8.2) g/dL Albumin 3.3 L (3.5-5.0) g/dL Procalcitonin (0.02-0.09) ng/mL Coronavirus (PCR) (Not Detectd) 10/22/20 10/22/20 Range/Units 20:40 20:40 Neutrophils # (1.3-7.7) k/uL Lymphocytes # (1.0-4.8) k/uL D-Dimer (<0.60) mg/L FEU Sodium (137-145) mmol/L Chloride (98-107) mmol/L BUN (9-20) mg/dL Glucose (74-99) mg/dL Ferritin (22.0-322.0) ng/mL Alkaline Phosphatase (38-126) U/L Lactate Dehydrogenase (313-618) U/L C-Reactive Protein (<1.0) mg/dL Total Protein (6.3-8.2) g/dL Albumin (3.5-5.0) g/dL Procalcitonin 0.34 H (0.02-0.09) ng/mL Coronavirus (PCR) Detected A (Not Detectd) Thrombosis Risk Factor Assmnt - Choose All That Apply Any of the Below Risk Factors Present?: No Other Risk Factors: Yes Each Risk Factor Represents 3 Points: Age 75 years or older Other congenital or acquired thrombophilia - If yes, enter type in comment: No Thrombosis Risk Factor Assessment Total Risk Factor Score: 3 Thrombosis Risk Factor Assessment Level: Moderate Risk Assessment and Plan Assessment: Acute covid bilateral pneumonia mild Acute hypoxic respiratory failure secondary to both Increased inflammatory markers Hypovolemic hyponatremia Essential hypertension. History of migraine Benign prostatic hypertrophy Plan: This is a pleasant 80 years old male who presents because of colic pneumonia. Continue with vitamin C, vitamin D, zinc. Continue with dexamethasone. Lovenox and Pepcid. Pulmonary consult Start Augmentin for elevated procalcitonin Labs and medication were reviewed.. Continue same treatment. Continue with symptomatic treatment. Resume home medication. Monitor lytes and vitals. DVT and GI prophylaxis. Further recommendations depends on the clinical course of the patient DVT prophylaxis: Subcutaneous Lovenox GI Prophylaxis: Pepcid PT/OT: Pending Prognosis is guarded
[2020-10-23 09:15] LABS: Basophils % (A) 0 %; Eosinophils % (A) 0 %; HCT 37.4 % (39.0-53.0); HGB 12.8 gm/dL (13.0-17.5); Lymphocytes # (A) 0.5 k/uL (1.0-4.8); Lymphocytes % (A) 5 %; MCH 29.6 pg (25.0-35.0); MCHC 34.2 g/dL (31.0-37.0); MCV 86.5 fL (80.0-100.0); Mean Platelet Volume 7.6; Monocytes # (A) 0.4 k/uL (0-1.0); Monocytes % (A) 4 %; Neutrophils # (A) 8.4 k/uL (1.3-7.7); Neutrophils % (A) 89 %; Platelet Count 206 k/uL (150-450); RBC 4.33 m/uL (4.30-5.90); RDW 13.6 % (11.5-15.5); WBC 9.4 k/uL (3.8-10.6)
[2020-10-23 09:31] LABS: ALT 20 U/L (4-49); AST 20 U/L (17-59); African American GFR (CKD) 86 (>60 ml/min/1.73 sqM); Albumin/Globulin Ratio 1.2; Alkaline Phosphatase 161 U/L (38-126); Anion Gap 9 mmol/L; Bilirubin,Unconjugated 0.7 mg/dL (0.0-1.1); Blood Urea Nitrogen 30 mg/dL (9-20); Calcium 8.7 mg/dL (8.4-10.2); Carbon Dioxide 30 mmol/L (22-30); Chloride 96 mmol/L (98-107); Globulin 2.6 g/dL; Glucose 135 mg/dL (74-99); LDH 648 U/L (313-618); Magnesium 2.2 mg/dL (1.6-2.3); Non-African American GFR(CKD) 75 (>60 ml/min/1.73 sqM); Potassium 4.2 mmol/L (3.5-5.1); Sodium 135 mmol/L (137-145); Total Bilirubin 1.1 mg/dL (0.2-1.3); Total Protein 5.6 g/dL (6.3-8.2)
[2020-10-23 09:45] LABS: C Reactive Protein 18.8 mg/dL (<1.0)
--- NOTE | 2020-10-23 12:13 | P.CNPUL ---
History of Present Illness Consult date: 10/23/20 Reason for consult: dyspnea, cough, hypoxemia Chief complaint: Shortness of breath and cough History of present illness: This is a 80-year-old nonsmoker male who was seen eval reexamined patient has been having ongoing symptoms of cough congestion shortness of breath, for some period time he has been taking prophylactic therapy at home with ivermectin, prednisone and supplements, daughter advised patient to be admitted into the hospital for further evaluation and intervention and treatment, patient does have a history of hypertension and hypertensive cardiovascular disease and BPH, he is a nonsmoker used to smoke remotely in the past, patient lately is having exertional dyspnea decreased appetite, and generalized weakness tiredness and fatigue, patient was afebrile but however noted to be hypoxic saturation is only 94% on 2 L, labs are significant for lymphopenia d-dimer was slightly up and telemetry markers up including LDH 629, C-reactive protein 19, pro-calcitonin is 0.34, COVID-19 came back positive, computed tomography scan of the chest negative for pulmonary embolism but showed bilateral patchy infiltrate consistent with COVID-19 pneumonia Review of Systems All systems: negative Past Medical History Past Medical History: Hypertension, Prostate Disorder, Skin Disorder Additional Past Medical History / Comment(s): hx migraines, ezcema History of Any Multi-Drug Resistant Organisms: None Reported Past Surgical History: Adenoidectomy, Orthopedic Surgery, Tonsillectomy Additional Past Surgical History / Comment(s): duarte knee arthroscopy Past Anesthesia/Blood Transfusion Reactions: No Reported Reaction Past Psychological History: No Psychological Hx Reported Smoking Status: Former smoker, Never smoker Past Alcohol Use History: None Reported Additional Past Alcohol Use History / Comment(s): quit smoking 30 yrs ago, smoked on and off from age 19, 1PPD Past Drug Use History: None Reported - Past Family History Mother Family Medical History: No Reported History Medications and Allergies Home Medications Medication Instructions Recorded Confirmed Type Tamsulosin HCl [Flomax] 0.4 mg PO BID 01/18/17 10/22/20 History Metoprolol Tartrate [Lopressor] 12.5 mg PO BID 10/22/20 10/22/20 History Allergies Allergy/AdvReac Type Severity Reaction Status Date / Time No Known Allergies Allergy Verified 10/22/20 23:03 Physical Exam Vitals: Vital Signs Temp Pulse Pulse Resp BP BP Pulse Ox 10/23/20 11:22 90 L 10/23/20 10:00 97.6 F 68 16 153/72 96 10/23/20 06:07 98.7 F 86 161/76 94 L 10/23/20 01:52 98.6 F 86 137/75 94 L 10/23/20 00:03 99.0 F 85 18 164/81 93 L 10/22/20 22:45 90 20 149/82 94 L 10/22/20 20:34 20 10/22/20 20:24 98.4 F 96 20 174/88 93 L Intake and Output 10/22/20 10/23/20 10/23/20 22:59 06:59 14:59 Intake Total 600 Balance 600 Intake: IV 600 Sodium Chloride 0.9% 1, 600 000 ml @ 75 mls/hr IV . [id number] [facility] Rx#:[id number] Other: # Voids 1 Weight 86.183 kg 86.183 kg - Constitutional General appearance: average body habitus, disheveled - EENT Eyes: PERRLA Ears: bilateral: normal - Neck Carotids: bilateral: upstroke normal - Respiratory Respiratory: bilateral: rales (Bilateral coarse breath sounds) - Cardiovascular Rhythm: regular Heart sounds: normal: S1, S2 - Gastrointestinal General gastrointestinal: normal bowel sounds, soft - Integumentary Integumentary: normal turgor - Neurologic Neurologic: CNII-XII intact - Musculoskeletal Musculoskeletal: gait normal, generalized weakness, strength equal bilaterally - Psychiatric Psychiatric: A&O x's 3, appropriate affect, intact judgment & insight Results - Laboratory Findings CBC and BMP: 10/23/20 07:47 10/23/20 07:47 PT/INR, D-dimer PT 10.7 sec (9.0-12.0) 10/22/20 20:40 INR 1.0 (<1.2) 10/22/20 20:40 D-Dimer 0.71 mg/L FEU (<0.60) H 10/23/20 07:47 Abnormal lab findings: Abnormal Labs 10/22/20 10/22/20 10/22/20 20:40 20:40 20:40 Hgb Hct Neutrophils # 9.6 H Lymphocytes # 0.4 L D-Dimer 0.76 H Sodium 128 L Chloride 96 L BUN 32 H Glucose 196 H Ferritin 697.7 H Alkaline Phosphatase 174 H Lactate Dehydrogenase 629 H C-Reactive Protein 19.7 H Total Protein 6.0 L Albumin 3.3 L Procalcitonin Coronavirus (PCR) 10/22/20 10/22/20 10/23/20 20:40 20:40 07:47 Hgb 12.8 L Hct 37.4 L Neutrophils # 8.4 H Lymphocytes # 0.5 L D-Dimer Sodium Chloride BUN Glucose Ferritin Alkaline Phosphatase Lactate Dehydrogenase C-Reactive Protein Total Protein Albumin Procalcitonin 0.34 H Coronavirus (PCR) Detected A 10/23/20 10/23/20 07:47 07:47 Hgb Hct Neutrophils # Lymphocytes # D-Dimer 0.71 H Sodium 135 L Chloride 96 L BUN 30 H Glucose 135 H Ferritin Alkaline Phosphatase 161 H Lactate Dehydrogenase 648 H C-Reactive Protein 18.8 H Total Protein 5.6 L Albumin 3.0 L Procalcitonin Coronavirus (PCR) - Diagnostic Findings Chest x-ray: report reviewed, image reviewed CT scan - chest: report reviewed, image reviewed (Finding as noted above) Assessment and Plan Assessment: Acute COVID 19 pneumonia Sepsis due to COVID-19 pneumonia Hypertension and hypertensive cardiovascular disease BPH Plan: Supplemental oxygen Deep breathing exercise incentive spirometry Prone positioning Supplements Decadron Lovenox IV [id number] Time with Patient: Greater than 30
[2020-10-23] MEDS ORDERED: REMDESIVIR 200 MG in SODIUM CHLORIDE 0.9% 250 ML IVPB ONE (13:00)
--- NOTE | 2020-10-23 13:31 | P.HPIM ---
History of Present Illness H&P Date: 10/23/20 Luigi Coy, is a 80-year-old male, who presented to [facility] emergency room with a chief complaint of worsening shortness of breath and cough. Patient stated that he was diagnosed with COVID-19 infection 3 weeks ago as outpatient, he was treated by a physician friend from [place] who prescribed ivermectin, prednisone and Zithromax, patient initially improved however he developed worsening shortness of breath cough and nausea eventually he decided to call EMS and come to emergency room for further evaluation and treatment. Patient was evaluated in the emergency room vital examination on presentation revealed a temperature of 98.4 pulse 96 respiration 20 blood pressu re 174/88 pulse ox was 87% on room air and 93% on 2 L nasal cannula, white blood count was 10.4 hemoglobin 13.5 platelet count 192 d-dimer 0.76 sodium 128 potassium 3.9 chloride 96 BUN 32 creatinine 0.94 alkaline phosphatase 174 lactate dihydrogenase 629 C-reactive protein 19.7 broken serotonin 0.34 coronavirus PCR was positive. Chest x-ray done in the emergency room revealed scattered infiltrate throughout both lung ivgil compatible with COVID-19 pneumonia, CT angiogram of the chest revealed no evidence of pulmonary embolism there was patchy bilateral pulmonary infiltrates consistent with pneumonia. Patient was admitted to medical floor he was started on IV Decadron subcu Lovenox and pulmonary consultation was requested. Past medical history is significant for history of hypertension, history of benign prostatic hypertrophy, patient denies any history of coronary artery disease, congestive heart failure, asthma, COPD, or diabetes mellitus. Past Medical History Past Medical History: Hypertension, Prostate Disorder, Skin Disorder Additional Past Medical History / Comment(s): hx migraines, ezcema History of Any Multi-Drug Resistant Organisms: None Reported Past Surgical History: Adenoidectomy, Orthopedic Surgery, Tonsillectomy Additional Past Surgical History / Comment(s): duarte knee arthroscopy Past Anesthesia/Blood Transfusion Reactions: No Reported Reaction Past Psychological History: No Psychological Hx Reported Smoking Status: Former smoker, Never smoker Past Alcohol Use History: None Reported Additional Past Alcohol Use History / Comment(s): quit smoking 30 yrs ago, smoked on and off from age 19, 1PPD Past Drug Use History: None Reported - Past Family History Mother Family Medical History: No Reported History Medications and Allergies Home Medications Medication Instructions Recorded Confirmed Type Tamsulosin HCl [Flomax] 0.4 mg PO BID 01/18/17 10/22/20 History Metoprolol Tartrate [Lopressor] 12.5 mg PO BID 10/22/20 10/22/20 History Allergies Allergy/AdvReac Type Severity Reaction Status Date / Time No Known Allergies Allergy Verified 10/22/20 23:03 Physical Exam Vitals: Vital Signs Temp Pulse Pulse Resp BP BP Pulse Ox 10/23/20 08:00 97.6 F 68 16 153/72 96 10/23/20 06:07 98.7 F 86 161/76 94 L 10/23/20 01:52 98.6 F 86 137/75 94 L 10/23/20 00:03 99.0 F 85 18 164/81 93 L 10/22/20 22:45 90 20 149/82 94 L 10/22/20 20:34 20 10/22/20 20:24 98.4 F 96 20 174/88 93 L Intake and Output 10/22/20 10/23/20 10/23/20 22:59 06:59 14:59 Other: # Voids 1 Weight 86.183 kg 86.183 kg In general patient is alert and oriented 3 in no apparent distress HEENT head normocephalic and atraumatic Neck is supple no JVD no goiter no lymphadenopathy Chest exam reveals a few scattered crackles no wheezing Cardiac exam reveals regular heart sounds S1 and S2 no gallops no murmurs Abdomen is soft nontender no organomegaly with normal bowel sounds Extremity exam reveals no edema no cyanosis or clubbing Neurological examination reveals no gross focal deficit Results CBC & Chem 7: 10/23/20 07:47 10/23/20 07:47 Labs: Abnormal Lab Results - Last 24 Hours (Table) 10/22/20 10/22/20 10/22/20 Range/Units 20:40 20:40 20:40 Hgb (13.0-17.5) gm/dL Hct (39.0-53.0) % Neutrophils # 9.6 H (1.3-7.7) k/uL Lymphocytes # 0.4 L (1.0-4.8) k/uL D-Dimer 0.76 H (<0.60) mg/L FEU Sodium 128 L (137-145) mmol/L Chloride 96 L (98-107) mmol/L BUN 32 H (9-20) mg/dL Glucose 196 H (74-99) mg/dL Ferritin 697.7 H (22.0-322.0) ng/mL Alkaline Phosphatase 174 H (38-126) U/L Lactate Dehydrogenase 629 H (313-618) U/L C-Reactive Protein 19.7 H (<1.0) mg/dL Total Protein 6.0 L (6.3-8.2) g/dL Albumin 3.3 L (3.5-5.0) g/dL Procalcitonin (0.02-0.09) ng/mL Coronavirus (PCR) (Not Detectd) 10/22/20 10/22/20 10/23/20 Range/Units 20:40 20:40 07:47 Hgb 12.8 L (13.0-17.5) gm/dL Hct 37.4 L (39.0-53.0) % Neutrophils # 8.4 H (1.3-7.7) k/uL Lymphocytes # 0.5 L (1.0-4.8) k/uL D-Dimer (<0.60) mg/L FEU Sodium (137-145) mmol/L Chloride (98-107) mmol/L BUN (9-20) mg/dL Glucose (74-99) mg/dL Ferritin (22.0-322.0) ng/mL Alkaline Phosphatase (38-126) U/L Lactate Dehydrogenase (313-618) U/L C-Reactive Protein (<1.0) mg/dL Total Protein (6.3-8.2) g/dL Albumin (3.5-5.0) g/dL Procalcitonin 0.34 H (0.02-0.09) ng/mL Coronavirus (PCR) Detected A (Not Detectd) 10/23/20 10/23/20 Range/Units 07:47 07:47 Hgb (13.0-17.5) gm/dL Hct (39.0-53.0) % Neutrophils # (1.3-7.7) k/uL Lymphocytes # (1.0-4.8) k/uL D-Dimer 0.71 H (<0.60) mg/L FEU Sodium 135 L (137-145) mmol/L Chloride 96 L (98-107) mmol/L BUN 30 H (9-20) mg/dL Glucose 135 H (74-99) mg/dL Ferritin (22.0-322.0) ng/mL Alkaline Phosphatase 161 H (38-126) U/L Lactate Dehydrogenase 648 H (313-618) U/L C-Reactive Protein 18.8 H (<1.0) mg/dL Total Protein 5.6 L (6.3-8.2) g/dL Albumin 3.0 L (3.5-5.0) g/dL Procalcitonin (0.02-0.09) ng/mL Coronavirus (PCR) (Not Detectd) Thrombosis Risk Factor Assmnt - Choose All That Apply Any of the Below Risk Factors Present?: No Other Risk Factors: Yes Each Risk Factor Represents 3 Points: Age 75 years or older Other congenital or acquired thrombophilia - If yes, enter type in comment: No Thrombosis Risk Factor Assessment Total Risk Factor Score: 3 Thrombosis Risk Factor Assessment Level: Moderate Risk Assessment and Plan Plan: Acute COVID-19 infection with bilateral pneumonia Acute hypoxic respiratory failure Hypovolemic hyponatremia Underlying history of hypertension Underlying history of benign prostatic hypertrophy Underlying history of migraine headache At this time patient is admitted to medical floor he was started on IV dexa methasone subcu Lovenox and Pepcid Pulmonary consultation was requested Patient has elevated inflammatory markers will monitor closely Will follow during this admission for medical
[2020-10-23 15:03] VITALS: BMI 27.2
[2020-10-24] MEDS: SODIUM CHLORIDE 0.9% 1,000 ML IV SCH (00:46)
[2020-10-24] MEDS: METOPROLOL TARTRATE 12.5 MG TAB PO SCH ×2 (07:33→20:11)
[2020-10-24] MEDS: ENOXAPARIN 40 MG/0.4 ML SYRINGE SQ SCH (07:33)
[2020-10-24] MEDS: ASCORBIC ACID 500 MG TAB PO SCH (07:33)
[2020-10-24] MEDS: dexAMETHasone 2 MG TAB PO SCH (07:33)
[2020-10-24] MEDS: FAMOTIDINE 20 MG TAB PO SCH (07:33)
[2020-10-24] MEDS: TAMSULOSIN 0.4 MG CAP.ER.24H PO SCH ×2 (07:33→20:11)
[2020-10-24] MEDS: CHOLECALCIFEROL 25 MCG (1000 IU) TABLET PO SCH (07:33)
[2020-10-24] MEDS: AMOXIC-POT CLAV 875-125MG 1 EACH TAB PO SCH ×2 (07:34→20:11)
--- NOTE | 2020-10-24 08:57 | P.PN ---
Subjective Progress Note Date: 10/24/20 Principal diagnosis: Acute COVID 19 pneumonia Sepsis due to COVID-19 pneumonia Hypertension and hypertensive cardiovascular disease BPH 10/24/2020, patient seen eval examined during the rounds patient is on 4 L oxygen remains short of breath, patient is on usual therapy for COVID-19 pneumonia, ongoing cough intermittent is present which is mostly dry, is still congested in the chest, patient is complaining of some dyspnea on exertion, discussed with patient if he can lay prone as much as possible, patient remains on usual therapy for COVID-19 pneumonia This is a 80-year-old nonsmoker male who was seen eval reexamined patient has been having ongoing symptoms of cough congestion shortness of breath, for some period time he has been taking prophylactic therapy at home with ivermectin, prednisone and supplements, daughter advised patient to be admitted into the hospital for further evaluation and intervention and treatment, patient does have a history of hypertension and hypertensive cardiovascular disease and BPH, he is a nonsmoker used to smoke remotely in the past, patient lately is having exertional dyspnea decreased appetite, and generalized weakness tiredness and fatigue, patient was afebrile but however noted to be hypoxic saturation is only 94% on 2 L, labs are significant for lymphopenia d-dimer was slightly up and telemetry markers up including LDH 629, C-reactive protein 19, pro-calcitonin is 0.34, COVID-19 came back positive, computed tomography scan of the chest negative for pulmonary embolism but showed bilateral patchy infiltrate consist ent with COVID-19 pneumonia Objective - Vital Signs Vital signs: Vital Signs Temp 97.7 F 10/24/20 06:00 Pulse 74 10/24/20 06:00 Resp 20 10/24/20 06:00 BP 164/79 10/24/20 06:00 Pulse Ox 91 L 10/24/20 06:00 Intake & Output 10/23/20 10/24/20 10/24/20 18:59 06:59 18:59 Intake Total 850 Balance 850 Weight 86.183 kg Intake: IV 600 Sodium Chloride 0.9% 1, 600 000 ml @ 75 mls/hr IV . [id number] [facility] Rx#:[id number] Intake, IV Titration 250 Amount Remdesivir 200 mg In 250 Sodium Chloride 0.9% 250 ml @ 250 mls/hr IVPB ONCE ONE Rx#:[id number] Other: Voiding Method Toilet - Exam - Constitutional General appearance: average body habitus, disheveled - EENT Eyes: PERRLA Ears: bilateral: normal - Neck Carotids: bilateral: upstroke normal - Respiratory Respiratory: bilateral: rales (Bilateral coarse breath sounds) - Cardiovascular Rhythm: regular Heart sounds: normal: S1, S2 - Gastrointestinal General gastrointestinal: normal bowel sounds, soft - Integumentary Integumentary: normal turgor - Neurologic Neurologic: CNII-XII intact - Musculoskeletal Musculoskeletal: gait normal, generalized weakness, strength equal bilaterally - Psychiatric Psychiatric: A&O x's 3, appropriate affect, intact judgment & insight - Labs CBC & Chem 7: 10/23/20 07:47 10/23/20 07:47 Labs: Abnormal Lab Results - Last 24 Hours (Table) 10/23/20 10/23/20 10/23/20 Range/Units 07:47 07:47 07:47 Hgb 12.8 L (13.0-17.5) gm/dL Hct 37.4 L (39.0-53.0) % Neutrophils # 8.4 H (1.3-7.7) k/uL Lymphocytes # 0.5 L (1.0-4.8) k/uL D-Dimer 0.71 H (<0.60) mg/L FEU Sodium 135 L (137-145) mmol/L Chloride 96 L (98-107) mmol/L BUN 30 H (9-20) mg/dL Glucose 135 H (74-99) mg/dL Alkaline Phosphatase 161 H (38-126) U/L Lactate Dehydrogenase 648 H (313-618) U/L C-Reactive Protein 18.8 H (<1.0) mg/dL Total Protein 5.6 L (6.3-8.2) g/dL Albumin 3.0 L (3.5-5.0) g/dL Assessment and Plan Assessment: Acute COVID 19 pneumonia Acute hypoxic respiratory failure due to COVID-19 pneumonia Sepsis due to COVID-19 pneumonia Hypertension and hypertensive cardiovascular disease BPH Plan: Supplemental oxygen Deep breathing exercise incentive spirometry Prone positioning Supplements Decadron Lovenox IV REMDESIVIr Repeat chest x-ray tomorrow Time with Patient: Greater than 30
[2020-10-24] MEDS: REMDESIVIR 100 MG in SODIUM CHLORIDE 0.9% 250 ML IVPB SCH (12:26)
--- NOTE | 2020-10-24 13:37 | P.PN ---
Subjective Progress Note Date: 10/24/20 Luigi Coy, is a 80-year-old male, who presented to [facility] emergency room with a chief complaint of worsening shortness of breath and cough. Patient stated that he was diagnosed with COVID-19 infection 3 weeks ago as outpatient, he was treated by a physician friend from [place] who prescribed ivermectin, prednisone and Zithromax, patient initially improved however he developed worsening shortness of breath cough and nausea eventually he decided to call EMS and come to emergency room for further evaluation and treatment. Patient was evaluated in the emergency room vital examination on presentation revealed a temperature of 98.4 pulse 96 respiration 20 blood pressure 174/88 pulse ox was 87% on room air and 93% on 2 L nasal cannula, white blood count was 10.4 hemoglobin 13.5 platelet count 192 d-dimer 0.76 sodium 128 potassium 3.9 chloride 96 BUN 32 creatinine 0.94 alkaline phosphatase 174 lactate dihydrogenase 629 C-reactive protein 19.7 broken serotonin 0.34 patricia navirus PCR was positive. Chest x-ray done in the emergency room revealed scattered infiltrate throughout both lung vigil compatible with COVID-19 pneumonia, CT angiogram of the chest revealed no evidence of pulmonary embolism there was patchy bilateral pulmonary infiltrates consistent with pneumonia. Patient was admitted to medical floor he was started on IV Decadron subcu Lovenox and pulmonary consultation was requested. Past medical history is significant for history of hypertension, history of benign prostatic hypertrophy, patient denies any history of coronary artery disease, congestive heart failure, asthma, COPD, or diabetes mellitus. On 10/24/2020 patient was seen and examined on the medical floor he is alert and oriented 3 in no apparent distress he is still maintained on oxygen 5 L via nasal cannula , he is complaining of shortness of breath with any activity, he has occasional cough and chest tightness otherwise he denies any complaints there is no fever or chills no headache or dizziness no chest pain no nausea or vomiting no abdominal pain no diarrhea no blood in the stools no burning with urination no frequency or urgency and no hematuria. Objective - Vital Signs Vital signs: Vital Signs Temp 97.7 F 10/24/20 06:00 Pulse 74 10/24/20 06:00 Resp 20 10/24/20 06:00 BP 164/79 10/24/20 06:00 Pulse Ox 91 L 10/24/20 06:00 Intake & Output 10/23/20 10/24/20 10/24/20 18:59 06:59 18:59 Intake Total 850 Balance 850 Weight 86.183 kg Intake: IV 600 Sodium Chloride 0.9% 1, 600 000 ml @ 75 mls/hr IV . [id number] [facility] Rx#:[id number] Intake, IV Titration 250 Amount Remdesivir 200 mg In 250 Sodium Chloride 0.9% 250 ml @ 250 mls/hr IVPB ONCE ONE Rx#:[id number] Other: Voiding Method Toilet - Exam In general patient is alert and oriented 3 in no apparent distress HEENT head normocephalic and atraumatic Neck is supple no JVD no goiter no lymphadenopathy Chest exam reveals a few scattered crackles no wheezing Cardiac exam reveals regular heart sounds S1 and S2 no gallops no murmurs Abdomen is soft nontender no organomegaly with normal bowel sounds Extremity exam reveals no edema no cyanosis or clubbing Neurological examination reveals no gross focal deficit - Labs CBC & Chem 7: 10/23/20 07:47 10/23/20 07:47 Labs: Abnormal Lab Results - Last 24 Hours (Table) 10/23/20 10/23/20 10/23/20 Range/Units 07:47 07:47 07:47 Hgb 12.8 L (13.0-17.5) gm/dL Hct 37.4 L (39.0-53.0) % Neutrophils # 8.4 H (1.3-7.7) k/uL Lymphocytes # 0.5 L (1.0-4.8) k/uL D-Dimer 0.71 H (<0.60) mg/L FEU Sodium 135 L (137-145) mmol/L Chloride 96 L (98-107) mmol/L BUN 30 H (9-20) mg/dL Glucose 135 H (74-99) mg/dL Alkaline Phosphatase 161 H (38-126) U/L Lactate Dehydrogenase 648 H (313-618) U/L C-Reactive Protein 18.8 H (<1.0) mg/dL Total Protein 5.6 L (6.3-8.2) g/dL Albumin 3.0 L (3.5-5.0) g/dL Assessment and Plan Plan: Acute COVID-19 infection with bilateral pneumonia Acute hypoxic respiratory failure Hypovolemic hyponatremia Underlying history of hypertension Underlying history of benign prostatic hypertrophy Underlying history of migraine headache At this time patient is admitted to medical floor he was started on IV dexamet hasone subcu Lovenox and Pepcid Pulmonary consultation was requested Patient has elevated inflammatory markers will monitor closely Will follow during this admission for medical management.
[2020-10-25] MEDS: ENOXAPARIN 40 MG/0.4 ML SYRINGE SQ SCH (07:28)
[2020-10-25] MEDS: dexAMETHasone 2 MG TAB PO SCH (07:28)
[2020-10-25] MEDS: TAMSULOSIN 0.4 MG CAP.ER.24H PO SCH ×2 (07:29→20:58)
[2020-10-25] MEDS: FAMOTIDINE 20 MG TAB PO SCH (07:29)
[2020-10-25] MEDS: METOPROLOL TARTRATE 12.5 MG TAB PO SCH ×2 (07:29→20:58)
[2020-10-25] MEDS: CHOLECALCIFEROL 25 MCG (1000 IU) TABLET PO SCH (07:29)
[2020-10-25] MEDS: ZINC SULFATE 220 MG CAP PO SCH (07:29)
[2020-10-25] MEDS: AMOXIC-POT CLAV 875-125MG 1 EACH TAB PO SCH ×2 (07:29→20:58)
[2020-10-25] MEDS: ASCORBIC ACID 500 MG TAB PO SCH (07:29)
--- NOTE | 2020-10-25 07:35 | XR ---
EXAMINATION TYPE: XR chest 1V portable DATE OF EXAM: 10/25/2020 COMPARISON: Chest x-ray and chest CT 10/22/2020 HISTORY: Covid 19 pneumonia TECHNIQUE: Single frontal view of the chest is obtained. FINDINGS: Patchy airspace disease is present within the bilateral lungs. There is no evident pneumot horax or pleural effusion. Cardiac mediastinal silhouette is stable. There is prominence of the aorta . IMPRESSION: Findings consistent with patient's history Covid pneumonia. Aortic aneurysm.
--- NOTE | 2020-10-25 09:55 | P.PN ---
Subjective Progress Note Date: 10/25/20 Principal diagnosis: Acute COVID 19 pneumonia Sepsis due to COVID-19 pneumonia Hypertension and hypertensive cardiovascular disease BPH 10/25/2020, patient seen eval examined during the rounds labs reviewed medications reviewed on 2 L nasal cannula has been upset overnight due to illness of his , chest x-ray performed today reviewed and compared with the x-ray done on October 22, findings are stable and consistent with covert pneumonia along with prominent aorta services suggestive of aneurysm, patient remains on standard therapy for COVID-19 pneumonia 10/24/2020, patient seen eval examined during the rounds patient is on 4 L oxygen remains short of breath, patient is on usual therapy for COVID-19 pneumonia, ongoing cough intermittent is present which is mostly dry, is still congested in the chest, patient is complaining of some dyspnea on exertion, discussed with patient if he can lay prone as much as possible, patient remains on usual therapy for COVID-19 pneumonia This is a 80-year-old nonsmoker male who was seen eval reexamined patient has been having ongoing symptoms of cough congestion shortness of breath, for some period time he has been taking prophylactic therapy at home with ivermectin, prednisone and supplements, daughter advised patient to be admitted into the hospital for further evaluation and intervention and treatment, patient does giles ve a history of hypertension and hypertensive cardiovascular disease and BPH, he is a nonsmoker used to smoke remotely in the past, patient lately is having exertional dyspnea decreased appetite, and generalized weakness tiredness and fatigue, patient was afebrile but however noted to be hypoxic saturation is only 94% on 2 L, labs are significant for lymphopenia d-dimer was slightly up and telemetry markers up including LDH 629, C-reactive protein 19, pro-calcitonin is 0.34, COVID-19 came back positive, computed tomography scan of the chest negative for pulmonary embolism but showed bilateral patchy infiltrate consistent with COVID-19 pneumonia Objective - Vital Signs Vital signs: Vital Signs Temp 97.8 F 10/25/20 05:59 Pulse 61 10/25/20 05:59 Resp 16 10/25/20 05:59 BP 161/80 10/25/20 05:59 Pulse Ox 93 L 10/25/20 05:59 Intake & Output 10/24/20 10/25/20 10/25/20 18:59 06:59 18:59 Intake Total 800 Balance 800 Intake: IV 600 Sodium Chloride 0.9% 1, 600 000 ml @ 75 mls/hr IV . [id number] [facility] Rx#:[id number] Intake, IV Titration 200 Amount Remdesivir 200 mg In 200 Sodium Chloride 0.9% 250 ml @ 250 mls/hr IVPB ONCE ONE Rx#:[id number] Other: Voiding Method Toilet - Exam - Constitutional General appearance: average body habitus, disheveled - EENT Eyes: PERRLA Ears: bilateral: normal - Neck Carotids: bilateral: upstroke normal - Respiratory Respiratory: bilateral: rales (Bilateral coarse breath sounds) - Cardiovascular Rhythm: regular Heart sounds: normal: S1, S2 - Gastrointestinal General gastrointestinal: normal bowel sounds, soft - Integumentary Integumentary: normal turgor - Neurologic Neurologic: CNII-XII intact - Musculoskeletal Musculoskeletal: gait normal, generalized weakness, strength equal bilaterally - Psychiatric Psychiatric: A&O x's 3, appropriate affect, intact judgment & insight - Labs CBC & Chem 7: 10/23/20 07:47 10/23/20 07:47 Assessment and Plan Assessment: Acute COVID 19 pneumonia Acute hypoxic respiratory failure due to COVID-19 pneumonia Sepsis due to COVID-19 pneumonia Hypertension and hypertensive cardiovascular disease BPH Plan: Supplemental oxygen Deep breathing exercise incentive spirometry Prone positioning Supplements Decadron Lovenox IV REMDESIVIr Repeat chest x-ray Reviewed finding as above Time with Patient: Greater than 30
[2020-10-25] MEDS: ACETAMINOPHEN TAB 325 MG TAB PO PRN (11:30)
[2020-10-25] MEDS: REMDESIVIR 100 MG in SODIUM CHLORIDE 0.9% 250 ML IVPB SCH (12:43)
--- NOTE | 2020-10-25 15:19 | P.PN ---
Subjective Progress Note Date: 10/25/20 Luigi Coy, is a 80-year-old male, who presented to [facility] emergency room with a chief complaint of worsening shortness of breath and cough. Patient stated that he was diagnosed with COVID-19 infection 3 weeks ago as outpatient, he was treated by a physician friend from [place] who prescribed ivermectin, prednisone and Zithromax, patient initially improved however he developed worsening shortness of breath cough and nausea eventually he decided to call EMS and come to emergency room for further evaluation and treatment. Patient was evaluated in the emergency room vital examination on presentation revealed a temperature of 98.4 pulse 96 respiration 20 blood pressure 174/88 pulse ox was 87% on room air and 93% on 2 L nasal cannula, white blood count was 10.4 hemoglobin 13.5 platelet count 192 d-dimer 0.76 sodium 128 potassium 3.9 chloride 96 BUN 32 creatinine 0.94 alkaline phosphatase 174 lactate dihydrogenase 629 C-reactive protein 19.7 broken serotonin 0.34 patricia navirus PCR was positive. Chest x-ray done in the emergency room revealed scattered infiltrate throughout both lung vigil compatible with COVID-19 pneumonia, CT angiogram of the chest revealed no evidence of pulmonary embolism there was patchy bilateral pulmonary infiltrates consistent with pneumonia. Patient was admitted to medical floor he was started on IV Decadron subcu Lovenox and pulmonary consultation was requested. Past medical history is significant for history of hypertension, history of benign prostatic hypertrophy, patient denies any history of coronary artery disease, congestive heart failure, asthma, COPD, or diabetes mellitus. On 10/24/2020 patient was seen and examined on the medical floor he is alert and oriented 3 in no apparent distress he is still maintained on oxygen 5 L via nasal cannula , he is complaining of shortness of breath with any activity, he has occasional cough and chest tightness otherwise he denies any complaints there is no fever or chills no headache or dizziness no chest pain no nausea or vomiting no abdominal pain no diarrhea no blood in the stools no burning with urination no frequency or urgency and no hematuria. On 10/25/2020 Patient was seen and examined on the medical floor, he is alert and oriented and oriented x 3 in no distress, he is still complaining of shortness of breath otherwise he denies any complaints there is no fever or chills no headache or dizziness no chest pain no palpitation no cough no nausea or vomiting no abdominal pain no diarrhea no blood in the stools no burning with urination no frequency or urgency and no hematuria, there is no weakness or numbness in any of the extremities no change in vision speech or gait. Objective - Vital Signs Vital signs: Vital Signs Temp 97.8 F 10/25/20 05:59 Pulse 61 10/25/20 05:59 Resp 16 10/25/20 05:59 BP 161/80 10/25/20 05:59 Pulse Ox 93 L 10/25/20 05:59 Intake & Output 10/24/20 10/25/20 10/25/20 18:59 06:59 18:59 Intake Total 800 Balance 800 Intake: IV 600 Sodium Chloride 0.9% 1, 600 000 ml @ 75 mls/hr IV . [id number] [facility] Rx#:[id number] Intake, IV Titration 200 Amount Remdesivir 200 mg In 200 Sodium Chloride 0.9% 250 ml @ 250 mls/hr IVPB ONCE ONE Rx#:[id number] Other: Voiding Method Toilet - Exam In general patient is alert and oriented 3 in no apparent distress HEENT head normocephalic and atraumatic Neck is supple no JVD no goiter no lymphadenopathy Chest exam reveals a few scattered crackles no wheezing Cardiac exam reveals regular heart sounds S1 and S2 no gallops no murmurs Abdomen is soft nontender no organomegaly with normal bowel sounds Extremity exam reveals no edema no cyanosis or clubbing Neurological examination reveals no gross focal deficit - Labs CBC & Chem 7: 10/23/20 07:47 10/23/20 07:47 Assessment and Plan Plan: Acute COVID-19 infection with bilateral pneumonia Acute hypoxic respiratory failure Hypovolemic hyponatremia Underlying history of hypertension Underlying history of benign prostatic hypertrophy Underlying history of migraine headache At this time patient is admitted to medical floor he was started on IV dexamethasone subcu Lovenox and Pepcid Pulmonary consultation was requested Patient has elevated inflammatory markers will monitor closely Will follow during this admission for medical management.
[2020-10-26] MEDS: CHOLECALCIFEROL 25 MCG (1000 IU) TABLET PO SCH (07:16)
[2020-10-26] MEDS: ASCORBIC ACID 500 MG TAB PO SCH (07:16)
[2020-10-26] MEDS: FAMOTIDINE 20 MG TAB PO SCH (07:16)
[2020-10-26] MEDS: dexAMETHasone 2 MG TAB PO SCH (07:16)
[2020-10-26] MEDS: ENOXAPARIN 40 MG/0.4 ML SYRINGE SQ SCH (07:16)
[2020-10-26] MEDS: ZINC SULFATE 220 MG CAP PO SCH (07:16)
[2020-10-26] MEDS: AMOXIC-POT CLAV 875-125MG 1 EACH TAB PO SCH ×2 (07:16→20:34)
[2020-10-26] MEDS: METOPROLOL TARTRATE 12.5 MG TAB PO SCH (07:16)
[2020-10-26] MEDS: TAMSULOSIN 0.4 MG CAP.ER.24H PO SCH ×2 (07:16→20:34)
--- NOTE | 2020-10-26 11:29 | P.PN ---
Subjective Progress Note Date: 10/26/20 Principal diagnosis: Acute COVID 19 pneumonia Sepsis due to COVID-19 pneumonia Hypertension and hypertensive cardiovascular disease BPH 10/26/2020, patient seen eval examined during the rounds respiratory status slightly improved however continue require 4 L oxygen, short of breath on activity and exertion lately blood pressure has been running high, can increase Lopressor to 25 twice a day discussed with the RN, continued to be on therapy for COVID-19 pneumonia, last chest x-ray remains stable consistent with covid 19 pneumonia 10/25/2020, patient seen eval examined during the rounds labs reviewed medications reviewed on 2 L nasal cannula has been upset overnight due to illness of his , chest x-ray performed today reviewed and compared with the x-ray done on October 22, findings are stable and consistent with covert pneumonia along with prominent aorta services suggestive of aneurysm, patient remains on standard therapy for COVID-19 pneumonia 10/24/2020, patient seen eval examined during the rounds patient is on 4 L oxygen remains short of breath, patient is on usual therapy for COVID-19 pneumonia, ongoing cough intermittent is present which is mostly dry, is still congested in the chest, patient is complaining of some dyspnea on exertion, discussed with patient if he can lay prone as much as possible, patient remains on usual therapy for COVID-19 pneumonia This is a 80-year-old nonsmoker male who was seen eval reexamined patient has been having ongoing symptoms of cough congestion shortness of breath, for some period time he has been taking prophylactic therapy at home with ivermectin, prednisone and supplements, daughter advised patient to be admitted into the hospital for further evaluation and intervention and treatment, patient does giles ve a history of hypertension and hypertensive cardiovascular disease and BPH, he is a nonsmoker used to smoke remotely in the past, patient lately is having exertional dyspnea decreased appetite, and generalized weakness tiredness and fatigue, patient was afebrile but however noted to be hypoxic saturation is only 94% on 2 L, labs are significant for lymphopenia d-dimer was slightly up and telemetry markers up including LDH 629, C-reactive protein 19, pro-calcitonin is 0.34, COVID-19 came back positive, computed tomography scan of the chest negative for pulmonary embolism but showed bilateral patchy infiltrate consistent with COVID-19 pneumonia Objective - Vital Signs Vital signs: Vital Signs Temp 97.6 F 04/26/21 10:00 Pulse 73 10/26/20 10:00 Resp 16 10/26/20 10:00 BP 139/72 10/26/20 10:00 Pulse Ox 95 10/26/20 10:00 Intake & Output 10/25/20 10/26/20 10/26/20 18:59 06:59 18:59 Other: Voiding Method Toilet # Voids 5 - Exam - Constitutional General appearance: average body habitus, disheveled - EENT Eyes: PERRLA Ears: bilateral: normal - Neck Carotids: bilateral: upstroke normal - Respiratory Respiratory: bilateral: rales (Bilateral coarse breath sounds) - Cardiovascular Rhythm: regular Heart sounds: normal: S1, S2 - Gastrointestinal General gastrointestinal: normal bowel sounds, soft - Integumentary Integumentary: normal turgor - Neurologic Neurologic: CNII-XII intact - Musculoskeletal Musculoskeletal: gait normal, generalized weakness, strength equal bilaterally - Psychiatric Psychiatric: A&O x's 3, appropriate affect, intact judgment & insight - Labs CBC & Chem 7: 10/23/20 07:47 10/23/20 07:47 Assessment and Plan Assessment: Acute COVID 19 pneumonia Acute hypoxic respiratory failure due to COVID-19 pneumonia Sepsis due to COVID-19 pneumonia Hypertension and hypertensive cardiovascular disease BPH Plan: Supplemental oxygen Deep breathing exercise incentive spirometry Prone positioning Supplements Decadron Lovenox IV REMDESIVIr 5 days Repeat chest x-ray Reviewed finding as above
[2020-10-26] MEDS: REMDESIVIR 100 MG in SODIUM CHLORIDE 0.9% 250 ML IVPB SCH (12:10)
--- NOTE | 2020-10-26 18:57 | P.PN ---
Subjective Progress Note Date: 10/26/20 Luigi Coy, is a 80-year-old male, who presented to [facility] emergency room with a chief complaint of worsening shortness of breath and cough. Patient stated that he was diagnosed with COVID-19 infection 3 weeks ago as outpatient, he was treated by a physician friend from [place] who prescribed ivermectin, prednisone and Zithromax, patient initially improved however he developed worsening shortness of breath cough and nausea eventually he decided to call EMS and come to emergency room for further evaluation and treatment. Patient was evaluated in the emergency room vital examination on presentation revealed a temperature of 98.4 pulse 96 respiration 20 blood pressure 174/88 pulse ox was 87% on room air and 93% on 2 L nasal cannula, white blood count was 10.4 hemoglobin 13.5 platelet count 192 d-dimer 0.76 sodium 128 potassium 3.9 chloride 96 BUN 32 creatinine 0.94 alkaline phosphatase 174 lactate dihydrogenase 629 C-reactive protein 19.7 broken serotonin 0.34 patricia navirus PCR was positive. Chest x-ray done in the emergency room revealed scattered infiltrate throughout both lung vigil compatible with COVID-19 pneumonia, CT angiogram of the chest revealed no evidence of pulmonary embolism there was patchy bilateral pulmonary infiltrates consistent with pneumonia. Patient was admitted to medical floor he was started on IV Decadron subcu Lovenox and pulmonary consultation was requested. Past medical history is significant for history of hypertension, history of benign prostatic hypertrophy, patient denies any history of coronary artery disease, congestive heart failure, asthma, COPD, or diabetes mellitus. On 10/24/2020 patient was seen and examined on the medical floor he is alert and oriented 3 in no apparent distress he is still maintained on oxygen 5 L via nasal cannula , he is complaining of shortness of breath with any activity, he has occasional cough and chest tightness otherwise he denies any complaints there is no fever or chills no headache or dizziness no chest pain no nausea or vomiting no abdominal pain no diarrhea no blood in the stools no burning with urination no frequency or urgency and no hematuria. On 10/25/2020 Patient was seen and examined on the medical floor, he is alert and oriented and oriented x 3 in no distress, he is still complaining of shortness of breath otherwise he denies any complaints there is no fever or chills no headache or dizziness no chest pain no palpitation no cough no nausea or vomiting no abdominal pain no diarrhea no blood in the stools no burning with urination no frequency or urgency and no hematuria, there is no weakness or numbness in any of the extremities no change in vision speech or gait. On 10/26/2020 Patient was seen and examined on the medical floor, he is alert and oriented x 3 in no distress, he denies any complaints there is no fever or chills no headache or dizziness no chest pain no shortness of breath no palpitation no cough no nausea or vomiting no abdominal pain no diarrhea no blood in the stools no burning with urination no frequency or urgency and no hematuria, there is no weakness or numbness in any of the extremities no change in vision speech or gait. Patient is stable he will be finishing Remdes[facility]ir tomorrow , possible discharge to home in the next 1-2 days Objective - Vital Signs Vital signs: Vital Signs Temp 97.7 F 10/26/20 14:00 Pulse 76 10/26/20 14:00 Resp 16 10/26/20 14:00 BP 155/77 10/26/20 14:00 Pulse Ox 92 L 10/26/20 14:00 Intake & Output 10/25/20 10/26/20 10/26/20 18:59 06:59 18:59 Other: Voiding Method Toilet # Voids 5 - Exam In general patient is alert and oriented 3 in no apparent distress HEENT head normocephalic and atraumatic Neck is supple no JVD no goiter no lymphadenopathy Chest exam reveals a few scattered crackles no wheezing Cardiac exam reveals regular heart sounds S1 and S2 no gallops no murmurs Abdomen is soft nontender no organomegaly with normal bowel sounds Extremity exam reveals no edema no cyanosis or clubbing Neurological examination reveals no gross focal deficit - Labs CBC & Chem 7: 10/23/20 07:47 10/23/20 07:47 Assessment and Plan Plan: Acute COVID-19 infection with bilateral pneumonia Acute hypoxic respiratory failure Hypovolemic hyponatremia Underlying history of hypertension Underlying history of benign prostatic hypertrophy Underlying history of migraine headache At this time patient is admitted to medical floor he was started on IV dexame thasone subcu Lovenox and Pepcid Pulmonary consultation was requested Patient has elevated inflammatory markers will monitor closely Will follow during this admission for medical management.
[2020-10-26] MEDS: METOPROLOL TARTRATE 25 MG TAB PO SCH (20:34)
[2020-10-27 05:42] VITALS: RESP 16; TEMP 97.7
[2020-10-27] MEDS: ZINC SULFATE 220 MG CAP PO SCH (07:17)
[2020-10-27] MEDS: ENOXAPARIN 40 MG/0.4 ML SYRINGE SQ SCH (07:17)
[2020-10-27] MEDS: AMOXIC-POT CLAV 875-125MG 1 EACH TAB PO SCH (07:17)
[2020-10-27] MEDS: ASCORBIC ACID 500 MG TAB PO SCH (07:17)
[2020-10-27] MEDS: FAMOTIDINE 20 MG TAB PO SCH (07:17)
[2020-10-27] MEDS: dexAMETHasone 2 MG TAB PO SCH (07:17)
[2020-10-27] MEDS: CHOLECALCIFEROL 25 MCG (1000 IU) TABLET PO SCH (07:17)
[2020-10-27] MEDS: TAMSULOSIN 0.4 MG CAP.ER.24H PO SCH (07:18)
[2020-10-27] MEDS: METOPROLOL TARTRATE 25 MG TAB PO SCH (07:18)
--- NOTE | 2020-10-27 10:28 | P.PN ---
Subjective Progress Note Date: 10/27/20 Principal diagnosis: Acute COVID 19 pneumonia Sepsis due to COVID-19 pneumonia Hypertension and hypertensive cardiovascular disease BPH 10/27/2020, patient seen eval examined during the rounds shortness of breath stable, patient remains on 4 L, care plan discussed with RN we will taper the oxygen down, patient remains on the standard therapy for COVID-19 pneumonia and respiratory failure able to move around in the room, 10/26/2020, patient seen eval examined during the rounds respiratory status slightly improved however continue require 4 L oxygen, short of breath on ac tivity and exertion lately blood pressure has been running high, can increase Lopressor to 25 twice a day discussed with the RN, continued to be on therapy for COVID-19 pneumonia, last chest x-ray remains stable consistent with covid 19 pneumonia 10/25/2020, patient seen eval examined during the rounds labs reviewed medications reviewed on 2 L nasal cannula has been upset overnight due to illness of his , chest x-ray performed today reviewed and compared with the x-ray done on October 22, findings are stable and consistent with covert pneumonia along with prominent aorta services suggestive of aneurysm, patient remains on standard therapy for COVID-19 pneumonia 10/24/2020, patient seen eval examined during the rounds patient is on 4 L oxygen remains short of breath, patient is on usual therapy for COVID-19 pneumonia, ongoing cough intermittent is present which is mostly dry, is still congested in the chest, patient is complaining of some dyspnea on exertion, discussed with patient if he can lay prone as much as possible, patient remains on usual therapy for COVID-19 pneumonia This is a 80-year-old nonsmoker male who was seen eval reexamined patient has been having ongoing symptoms of cough congestion shortness of breath, for some period time he has been taking prophylactic therapy at home with ivermectin, prednisone and supplements, daughter advised patient to be admitted into the hospital for further evaluation and intervention and treatment, patient does have a history of hypertension and hypertensive cardiovascular disease and BPH, he is a nonsmoker used to smoke remotely in the past, patient lately is having exertional dyspnea decreased appetite, and generalized weakness tiredness and fatigue, patient was afebrile but however noted to be hypoxic saturation is only 94% on 2 L, labs are significant for lymphopenia d-dimer was slightly up and telemetry markers up including LDH 629, C-reactive protein 19, pro-calcitonin is 0.34, COVID-19 came back positive, computed tomography scan of the chest negative for pulmonary embolism but showed bilateral patchy infiltrate consistent with COVID-19 pneumonia Objective - Vital Signs Vital signs: Vital Signs Temp 97.7 F 10/27/20 05:40 Pulse 64 10/27/20 05:40 Resp 16 10/27/20 05:40 BP 157/82 10/27/20 05:40 Pulse Ox 96 10/27/20 05:40 Intake & Output 10/26/20 10/27/20 10/27/20 18:59 06:59 18:59 Other: Voiding Method Toilet # Voids 5 3 - Exam - Constitutional General appearance: average body habitus, disheveled - EENT Eyes: PERRLA Ears: bilateral: normal - Neck Carotids: bilateral: upstroke normal - Respiratory Respiratory: bilateral: rales (Bilateral coarse breath sounds) - Cardiovascular Rhythm: regular Heart sounds: normal: S1, S2 - Gastrointestinal General gastrointestinal: normal bowel sounds, soft - Integumentary Integumentary: normal turgor - Neurologic Neurologic: CNII-XII intact - Musculoskeletal Musculoskeletal: gait normal, generalized weakness, strength equal bilaterally - Psychiatric Psychiatric: A&O x's 3, appropriate affect, intact judgment & insight - Labs CBC & Chem 7: 10/23/20 07:47 10/23/20 07:47 Labs: Abnormal Lab Results - Last 24 Hours (Table) 10/27/20 Range/Units 07:15 D-Dimer 1.26 H (<0.60) mg/L FEU Assessment and Plan Assessment: Acute COVID 19 pneumonia Acute hypoxic respiratory failure due to COVID-19 pneumonia Sepsis due to COVID-19 pneumonia Hypertension and hypertensive cardiovascular disease BPH Plan: Supplemental oxygen Deep breathing exercise incentive spirometry Prone positioning Supplements Decadron Lovenox IV REMDESIVIr 5 days Repeat chest x-ray Reviewed finding as above Time with Patient: Greater than 30
[2020-10-27] MEDS: REMDESIVIR 100 MG in SODIUM CHLORIDE 0.9% 250 ML IVPB SCH (12:33)
[2020-10-27 14:53] VITALS: BP 128/68; PULSE 75
[2020-10-27 17:04] LABS: Basophils # (A) 0.04 X 10*3/uL (0.00-0.10); Basophils % (A) 0.4 %; Eosinophils # (A) 0.05 X 10*3/uL (0.04-0.35); Eosinophils % (A) 0.5 %; HCT 40.1 % (39.6-50.0); HGB 12.8 g/dL (13.0-17.0); Lymphocytes # (A) 0.58 X 10*3/uL (0.90-5.00); Lymphocytes % (A) 5.7 %; MCH 28.3 pg (27.0-32.0); MCHC 31.9 g/dL (32.0-37.0); MCV 88.5 fL (80.0-97.0); Mean Platelet Volume 10.7 fL (9.5-12.2); Monocytes # (A) 0.61 X 10*3/uL (0.20-1.00); Neutrophils # (A) 8.36 X 10*3/uL (1.80-7.70); Neutrophils % (A) 82.6 %; Platelet Count 317 X 10*3/uL (140-440); RBC 4.53 X 10*6/uL (4.40-5.60); RDW 13.9 % (11.5-14.5); WBC 10.13 X 10*3/uL (4.50-10.00)
[2020-10-27 17:48] LABS: African American GFR (CKD) 82.6 (60.0-200.0); Albumin 3.6 g/dL (3.80-4.90); Albumin/Globulin Ratio 1.89 (1.60-3.17); Anion Gap 5.8 mmol/L (4.00-12.00); Calcium 9.2 mg/dL (8.7-10.3); Carbon Dioxide 29.2 mmol/L (21.6-31.8); Globulin 1.9 g/dL (1.6-3.3); Non-African American GFR(CKD) 71.3 (60.0-200.0); Potassium 4.5 mmol/L (3.5-5.5); Total Bilirubin 0.7 mg/dL (0.3-1.2); Total Protein 5.5 g/dL (6.2-8.2)
--- NOTE | 2020-10-30 08:35 | CDI ---
Documentation Clarification Form Date: 10/30/2020 08:21:00 AM From: Alma Merida Phone: If you have a question about this query, please contact Gisell Brock, [employer] at [phone] between 8am and 5pm. Admit Date: 10/22/2020 10:43:00 PM Patient Name: Luigi Coy Visit Number: [id number] Discharge Date: 10/27/2020 04:00:00 PM ATTENTION: The Clinical Documentation Specialists (CDI) and [facility] Coding Staff appreciate your assistance in clarifying documentation. Please respond to the clarification below the line at the bottom and electronically sign. The CDI & [facility] Coding staff will review the response and follow-up if needed. Please note: Queries are made part of the Legal Health Record. If you have any questions, please contact the author of this message via ITS. Dr. Anthony Swain Per pulmonary consult and all PN's documentation of Sepsis due to Covid 19 pneumonia is documented through chart. Documentation of sepsis is not in your notes. Please clarify if patient had sepsis due to Covid 19 pneumonia or was Sepsis ruled out. History/Risk Factors: Covid pneumonia with acute hypoxic respiratory failure Clinical Indicators: WBC: 10.4 Lactic acid: 1.2 Vitals signs: 98.4 F, 96 bpm, 20, 174/88, 93% NC Treatment: Monitor lytes and vitals vitamin C and zinc, dexamethasone, IV Remdesivir, Lovenox Antibiotics: Augmentin In your professional opinion, please clarify if patient had sepsis due to covid 19 pneumonia or was sepsis ruled out. [ ] Sepsis POA [ ] Sepsis ruled out [ ] Other, please specify [ ] Unable to determine SIRS Criteria: 2 or more of the following may indicate SIRS -Temperature < 96.8F (36C) or > 101.0F (38.3C) -Heart Rate > 90 bpm -Respiratory Rate > 20 breaths/min or PaCO2 < 32 mmHg -White Blood Cell Count > 12,000 or < 4,000 cells/mm3 or > 10% Sepsis ruled out MTDD
--- NOTE | 2020-10-30 10:13 | P.DS ---
Providers Date of admission: 10/22/20 22:43 Expected date of discharge: 10/30/20 Attending physician: Anthony Swain Consults: 10/23/20 07:32 Consult Physician Routine Consulting Provider: Levon Gregg Consult Reason/Comments: covid pna Do you want consulting provider notified?: Yes Primary care physician: Milena Linton [facility] Course: discharge diagnosis Acute COVID-19 infection with bilateral pneumonia Acute hypoxic respiratory failure Hypovolemic hyponatremia Underlying history of hypertension Underlying history of benign prostatic hypertrophy Underlying history of migraine headache Hospital course Luigi Coy, is a 80-year-old male, who presented to [facility] emergency room with a chief complaint of worsening shortness of breath and cough. Patient stated that he was diagnosed with COVID-19 infection 3 weeks ago as outpatient, he was treated by a physician friend from [place] who prescribed ivermectin, prednisone and Zithromax, patient initially improved however he developed worsening shortness of breath cough and nausea eventually he decided to call EMS and come to emergency room for further evaluation and treatment. Patient was evaluated in the emergency room vital examination on presentation revealed a temperature of 98.4 pulse 96 respiration 20 blood pressure 174/88 pulse ox was 87% on room air and 93% on 2 L nasal cannula, white blood count was 10.4 hemoglobin 13.5 platelet count 192 d-dimer 0.76 sodium 128 potassium 3.9 chloride 96 BUN 32 creatinine 0.94 alkaline phosphatase 174 lactate dihydrogenase 629 C-reactive protein 19.7 broken serotonin 0.34 coronavirus PCR was positive. Chest x-ray done in the emergency room revealed scattered infiltrate throughout both lung vigil compatible with COVID-19 pneumonia, CT angiogram of the chest revealed no evidence of pulmonary embolism there was patchy bilateral pulmonary infiltrates consistent with pneumonia. Patient was admitted to medical floor he was started on IV Decadron subcu Lovenox and pulmonary consultation was requested. Past medical history is significant for history of hypertension, history of benign prostatic hypertrophy, patient denies any history of coronary artery disease, congestive heart failure, asthma, COPD, or diabetes mellitus. On 10/24/2020 patient was seen and examined on the medical floor he is alert and oriented 3 in no apparent distress he is still maintained on oxygen 5 L via nasal cannula , he is complaining of shortness of breath with any activity, he has occasional cough and chest tightness otherwise he denies any complaints there is no fever or chills no headache or dizziness no chest pain no nausea or vomiting no abdominal pain no diarrhea no blood in the stools no burning with urination no frequency or urgency and no hematuria. On 10/25/2020 Patient was seen and examined on the medical floor, he is alert and oriented and oriented x 3 in no distress, he is still complaining of shortness of breath otherwise he denies any complaints there is no fever or chills no headache or dizziness no chest pain no palpitation no cough no nausea or vomiting no abdominal pain no diarrhea no blood in the stools no burning with urination no frequency or urgency and no hematuria, there is no weakness or numbness in any of the extremities no change in vision speech or gait. On 10/26/2020 Patient was seen and examined on the medical floor, he is alert and oriented x 3 in no distress, he denies any complaints there is no fever or chills no headache or dizziness no chest pain no shortness of breath no palpitation no cough no nausea or vomiting no abdominal pain no diarrhea no blood in the stools no burning with urination no frequency or urgency and no hematuria, there is no weakness or numbness in any of the extremities no change in vision speech or gait. Patient is stable [facility] , possible discharge to home in the next 1-2 days On 10/27/2020 patient discharged home. Patient discharged on dexamethasone, Xarelto, Lopressor, zinc, vitamin C and vitamin D patient follow-up PCP for further management Patient Condition at Discharge: Stable Plan - Discharge Summary Discharge Rx Participant: Yes New Discharge Prescriptions: New dexAMETHasone ORAL [Hexadrol] 6 mg PO DAILY tab Metoprolol Tartrate [Lopressor] 25 mg PO BID tab Zinc Sulfate [Orazinc] 220 mg PO DAILY cap Ascorbic Acid [Vitamin C] 1,000 mg PO DAILY tab Cholecalciferol [Vitamin D3 (25 Mcg = 1000 Iu)] 50 mcg PO DAILY tablet Rivaroxaban [Xarelto] 10 mg PO DAILY 10 Days #10 tab Continue Tamsulosin HCl [Flomax] 0.4 mg PO BID Discontinued Metoprolol Tartrate [Lopressor] 12.5 mg PO BID Discharge Medication List Tamsulosin HCl [Flomax] 0.4 mg PO BID 01/18/17 [History] Ascorbic Acid [Vitamin C] 1,000 mg PO DAILY tab 10/27/20 [Rx] Cholecalciferol [Vitamin D3 (25 Mcg = 1000 Iu)] 50 mcg PO DAILY tablet 10/27/20 [Rx] Metoprolol Tartrate [Lopressor] 25 mg PO BID tab 10/27/20 [Rx] Rivaroxaban [Xarelto] 10 mg PO DAILY 10 Days #10 tab 10/27/20 [Rx] Zinc Sulfate [Orazinc] 220 mg PO DAILY cap 10/27/20 [Rx] dexAMETHasone ORAL [Hexadrol] 6 mg PO DAILY tab 10/27/20 [Rx] Follow up Appointment(s)/Referral(s): Milena Linton MD [Primary Care Provider] - As Needed [facility] [NON-STAFF] - [facility], [[facility]] - As Needed Levon Gregg MD [STAFF PHYSICIAN] - 11/10/20 2:00 pm Patient Instructions/Handouts: Coronavirus Disease 2019 (COVID-19) Discharge Disposition: HOME SELF-CARE
== END 2020-10-27 16:00 | disposition home or self-care (01) | DRG 177 ==
LOC: EC 20:23 → 4SSUR 22:43
PROVIDERS: ADMIT Internal Medicine; ATTEND Internal Medicine
PROC: XW033E5 Introduction of Remdesivir Anti-infective into Peripheral Vein, Percutaneous Approach, New Technology Group 5 (ICD-10-PCS; principal; 2020-10-22)
DX: U07.1 COVID-19 (principal); J12.82 Pneumonia due to coronavirus disease 2019; J96.01 Acute respiratory failure with hypoxia; E87.1 Hypo-osmolality and hyponatremia; M48.54XA Collapsed vertebra, not elsewhere classified, thoracic region, initial encounter for fracture; D72.810 Lymphocytopenia; E86.1 Hypovolemia; H91.90 Unspecified hearing loss, unspecified ear; R79.1 Abnormal coagulation profile; G43.909 Migraine, unspecified, not intractable, without status migrainosus; I72.9 Aneurysm of unspecified site; I11.9 Hypertensive heart disease without heart failure; L98.9 Disorder of the skin and subcutaneous tissue, unspecified; N40.0 Benign prostatic hyperplasia without lower urinary tract symptoms; Z79.82 Long term (current) use of aspirin; Z79.899 Other long term (current) drug therapy; Z87.891 Personal history of nicotine dependence; Z90.89 Acquired absence of other organs
CPT/HCPCS: 36415; 71045; 71275; 80048; 80053; 80076; 82728; 83605; 83615; 83735; 84145; 85025; 85379; 85610; 85730; 86140; 87635; 99285

== ENCOUNTER → 2022-02-11 | Outpatient (CLI) | payer OTHER ==
--- NOTE | 2022-02-11 21:34 | CT ---
EXAMINATION TYPE: CT abdomen pelvis wo con CT DLP: 462.80 mGycm, Automated exposure control for dose reduction was used. DATE OF EXAM: 02/11/2022 4:31 PM COMPARISON: None CLINICAL INDICATION:Male, 81 years old with history of K40.90 UNIL INGUINAL HERNIA; hernia in lower p elvic area towards left side with pain. TECHNIQUE: Axial CT of the abdomen and pelvis. Sagittal and coronal reformats were created on a [employer] workstation. Contrast used: None Oral contrast used: with Oral Contrast FINDINGS: LOWER CHEST: Moderate to severe coronary artery atherosclerosis. Aortic valve calcifications are pres ent. ABDOMEN LIVER: Unremarkable GALLBLADDER AND BILE DUCTS: Unremarkable. PANCREAS: Unremarkable. SPLEEN: Unremarkable. ADRENAL GLANDS: Unremarkable. KIDNEYS AND URETERS: No evidence of hydronephrosis there are peripelvic renal cysts bilaterally and r ight renal cortical cyst present. Nonobstructing renal calculi are seen bilaterally. PELVIS BLADDER: Unremarkable REPRODUCTIVE: Prostate is enlarged in size measuring 5.4 cm in transverse dimension. ABDOMEN & PELVIS STOMACH AND BOWEL: No evidence of bowel obstruction. There is a third portion duodenal diverticulum p resent. PERITONEUM: No evidence of pneumoperitoneum or free fluid. VASCULATURE: Moderate atherosclerotic calcifications are present throughout the abdominal aorta and i ts branches. No evidence of aortic aneurysm. MUSCULOSKELETAL: No acute osseous abnormalities, moderate multilevel disc degeneration changes with m ultilevel disc bulging the lumbar spine with at least mild 2 moderate spinal canal stenosis at multip le levels. LYMPH NODES: No gross evidence for lymphadenopathy. SOFT TISSUE/ABDOMINAL WALL: There is a fat-containing inguinal hernia bilaterally. Left greater than right. IMPRESSION: 1. Bilateral fat containing inguinal hernias left greater than right 2. Moderate to severe coronary artery atherosclerosis and mild aortic valve calcifications. 3. Bilateral nonobstructing renal calculi. 4. Duodenal diverticulum of the third portion.
== END | disposition home or self-care (01) ==
LOC: RADCTMAIN 14:33
DX: I25.10 Atherosclerotic heart disease of native coronary artery without angina pectoris (principal); N20.0 Calculus of kidney; K57.11 Diverticulosis of small intestine without perforation or abscess with bleeding; K40.90 Unilateral inguinal hernia, without obstruction or gangrene, not specified as recurrent
CPT/HCPCS: 74176

== ENCOUNTER 2022-06-09 09:36 | Day surgery (SDC) | payer OTHER ==
--- NOTE | 2022-06-09 06:15 | P.GSHP ---
History of Present Illness H&P Date: 06/09/22 CHIEF COMPLAINT: Inguinal hernia, bilateral HISTORY OF PRESENT ILLNESS: The patient is a 83-year-old male who presents with a history of swelling and pain along the groins. He's noted increased swelling including pain of the area. Now he presents for repair of his inguinal hernia. PAST MEDICAL HISTORY: Please see list. PAST SURGICAL HISTORY: Please see list. MEDICATIONS: Please see list. ALLERGIES: Please see list. SOCIAL HISTORY: No illicit drug use FAMILY HISTORY: No reports of Crohn disease or ulcerative colitis. REVIEW OF ORGAN SYSTEMS: CONSTITUTIONAL: No reports of fevers or chills. No reports of weight loss despite prior attempts. GI: Denies any blood in stools or constipation. PHYSICAL EXAM: VITAL SIGNS: Stable GENERAL: Well-developed pleasant male in no acute distress. HEENT: No scleral icterus. Extraocular movements grossly intact. Moist buccal mucosa. NECK: Supple without lymphadenopathy. CHEST: Unlabored respirations. Equal bilateral excursions. CARDIOVASCULAR: Regular rate and rhythm. Distal 2+ pulses. ABDOMEN: Soft, nondistended. No peritoneal signs. Palpable defect of the groin MUSCULOSKELETAL: No clubbing, cyanosis, or edema. ASSESSMENT: 1. Inguinal hernia, bilateral PLAN: 1. Recommend proceeding with a robotic inguinal repair with mesh with bilateral approach. 2. Benefits and risks of surgical intervention was discussed including possibility of open technique. 3. DVT prophylaxis. 4. Antibiotic prophylaxis. 5. Non narcotic pain management including abdominal wall block described 6. Blood sugar glucose described. 7. Weight loss management described. 8. He is elevated risk with heart valve disease. Past Medical History Past Medical History: Hyperlipidemia, Hypertension, Prostate Disorder, Skin Disorder Additional Past Medical History / Comment(s): hx migraines, ezcema History of Any Multi-Drug Resistant Organisms: None Reported Past Surgical History: Adenoidectomy, Orthopedic Surgery, Tonsillectomy Additional Past Surgical History / Comment(s): duarte knee arthroscopy Past Anesthesia/Blood Transfusion Reactions: No Reported Reaction Smoking Status: Former smoker - Past Family History Mother Family Medical History: No Reported History Medications and Allergies Home Medications Medication Instructions Recorded Confirmed Type Tamsulosin HCl [Flomax] 0.4 mg PO BID 01/18/17 06/06/22 History Ascorbic Acid [Vitamin C] 1,000 mg PO DAILY tab 10/27/20 06/06/22 Rx Cholecalciferol [Vitamin D3 (25 50 mcg PO DAILY tablet 10/27/20 06/06/22 Rx Mcg = 1000 Iu)] L.acidoph,Paracasei, B.lactis 1 tab PO DAILY 06/06/22 06/06/22 History [Probiotic] Latanoprost/Pf [Latanoprost 0.005% 1 drop BOTH EYES HS 06/06/22 06/06/22 History Eye Drop] Metoprolol Tartrate [Lopressor] 12.5 mg PO BID 06/06/22 06/06/22 History Allergies Allergy/AdvReac Type Severity Reaction Status Date / Time No Known Allergies Allergy Verified 06/06/22 15:50
[~2022-06-09 09:36] MED LIST changes: +ACETAMINOPHEN TAB 500 MG TAB PO STA; +HEPARIN SODIUM,PORCINE/PF 5,000 UNIT/0.5 ML SYRINGE SQ PRN; +ONDANSETRON 4 MG/2 ML VIAL IVP ONE; +TAMSULOSIN 0.4 MG CAP.ER.24H PO STA; +fentaNYL (PF) 50 MCG/ML 2 ML AMP IV PRN
[2022-06-09 11:26] LABS: HCT 38.6 % (39.0-53.0); HGB 13.1 gm/dL (13.0-17.5); MCH 30.8 pg (25.0-35.0); MCHC 33.8 g/dL (31.0-37.0); MCV 91.1 fL (80.0-100.0); Mean Platelet Volume 8.2; Platelet Count 146 k/uL (150-450); RBC 4.24 m/uL (4.30-5.90); RDW 13.5 % (11.5-15.5); WBC 4.9 k/uL (3.8-10.6)
[2022-06-09] MEDS ORDERED: MIDAZOLAM 2 MG/2 ML VIAL IVP ONE (12:00)
[2022-06-09] MEDS ORDERED: fentaNYL (PF) 50 MCG/1 ML VIAL IVP ONE (12:00)
[2022-06-09] MEDS ORDERED: HEPARIN SODIUM,PORCINE 5,000 UNIT/ML 1 ML VIAL SQ ONE (12:12)
--- NOTE | 2022-06-09 12:40 | P.ANPRN ---
Procedure Note - Anesthesia - Nerve Block Performed Bilateral Erector Spinae Single Time Out Performed: Yes ([id number]) Date of Procedure: 06/09/22 Procedure Start Time: 11:59 Procedure Stop Time: 12:04 Location of Patient: PreOp Indication: Acute Post-Operative Pain, Requested by Surgeon Specifically requested for management of pain by : Carolina Kraft Sedation Type: Sedate with meaningful contact maintained Preparation: Sterile Prep Position: Prone Catheter: None Needle Types: Pajunk Needle Gauge: 21 Ultrasound used to visualize needle placement: Yes Ultrasound used to observe medication spread: Yes Injectate: 0.5% Ropivacaine (see comment for volume) (15cc + 5cc nacl pf) Blood Aspirated: No Pain Paresthesia on Injection Noted: No Resistance on Injection: Normal Image Stored and Saved: Yes Events: Uneventful and Well Tolerated
[2022-06-09 12:51] LABS: Albumin 3.1 g/dL (3.5-5.0); Calcium 8.5 mg/dL (8.4-10.2); Potassium 5.3 mmol/L (3.5-5.1); Total Bilirubin 0.6 mg/dL (0.2-1.3); Total Protein 5.2 g/dL (6.3-8.2)
[2022-06-09] MEDS ORDERED: SUCCINYLCHOLINE CHLORIDE 200 MG/10 ML VIAL IV ONE (12:52)
[2022-06-09] MEDS ORDERED: SODIUM CHLORIDE 0.9% (PF) 10 ML VIAL ONE (12:52)
[2022-06-09] MEDS ORDERED: ePHEDrine 50 MG/ML 1 ML VIAL ONE (12:52)
[2022-06-09] MEDS ORDERED: fentaNYL (PF) 50 MCG/ML 2 ML AMP ONE (12:52)
[2022-06-09] MEDS ORDERED: PHENYLEPHRINE-0.9% NACL SYG 1,000 MCG/10 ML SYRINGE ONE (12:52)
[2022-06-09] MEDS ORDERED: NEOSTIGMINE 1 MG/ML 10 ML VIAL ONE (12:52)
[2022-06-09] MEDS ORDERED: ROCURONIUM 10 MG/ML (5 ML VIAL) IV ONE (12:52)
[2022-06-09] MEDS ORDERED: LABETALOL 5 MG/ML VIAL MDV ONE (12:52)
[2022-06-09] MEDS ORDERED: LIDOCAINE 2% INJ 20 MG/ML (2 ML VIAL) ONE (12:52)
[2022-06-09] MEDS ORDERED: PROPOFOL 10 MG/ML 20 ML VIAL IV ONE (12:52)
[2022-06-09] MEDS ORDERED: GLYCOPYRROLATE 0.2 MG/ML 2 ML VIAL ONE (12:52)
[2022-06-09] MEDS ORDERED: ROPIVACAINE 5 MG/ML 30 ML VIAL ONE (12:52)
[2022-06-09] MEDS ORDERED: BUPIVACAIN-EPI 0.25%-1:200,000 30 ML VIAL SQ ONE (13:29)
[2022-06-09] MEDS ORDERED: LACTATED RINGERS 1,000 ML IV ONE (13:36)
[2022-06-09 15:06] VITALS: TEMP 97.2
[2022-06-09] MEDS ORDERED: TAMSULOSIN 0.4 MG CAP.ER.24H PO PRN (15:17)
[2022-06-09] MEDS ORDERED: KETOROLAC 15 MG/ML 1 ML VIAL IVP PRN (15:18)
[2022-06-09] MEDS ORDERED: oxyCODONE-APAP 7.5-325MG 1 EACH TAB PO PRN (15:22)
--- NOTE | 2022-06-09 15:36 | P.OP ---
Date of Procedure: 06/09/22 Description of Procedure: SURGEON: ROYAL KRAFT MD PREOPERATIVE DIAGNOSES: 1. Initial bilateral inguinal hernia 2. Hypertensive heart disease 3. 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 Hyperlipidemia 5. Migraines POSTOPERATIVE DIAGNOSES: 1. Initial bilateral inguinal hernia 2. Hypertensive heart disease 3. 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 Hyperlipidemia 5. Migraines OPERATION: 1. Robotic-assisted da Randolph Xi laparoscopic repair of initial reducible right direct inguinal hernia with mesh, 11.[address] 2. Robotic-assisted da Randolph Xi laparoscopic repair of initial reducible left direct inguinal hernia with mesh, 11.[address] 3. Resection of incarcerated left inguinal lipoma, 3 cm ANESTHESIA: General with local anesthetic ESTIMATED BLOOD LOSS: 5 mL. SPECIMENS: 1. Left inguinal lipoma and hernia sac 2. Right inguinal hernia sac COMPLICATIONS: None. FINDINGS: 1. Indirect left inguinal hernia defect, 3 cm extending to the scrotum, initial Nyhus type II 2. Indirect right inguinal hernia defect, 2 cm, initial Nyhus type I INDICATIONS: The patient is a 82-year-old gentleman who presents with symptomatic bilateral inguinal hernia. Now presents for definitive surgical intervention. Laparoscopic versus open and robotic approaches were discussed. Benefits and risks including bleeding, infection, injury to the vas deferens as well as sterility and chronic groin pain were reviewed. Placement of mesh was also described. Informed consent was obtained. DESCRIPTION: In the preoperative area, the patient was marked with indelible marker along the inguinal hernia. The patient was brought to the operating room and initially laid in supine position. The abdomen had been prepped and draped in standard sterile fashion. Ioban draping was also placed. Prior to incision, a timeout protocol was confirmed with surgical team regarding patient's name including procedures to be performed and location along the right groin. Initial positioning for the robotic assisted ports were selected whereby 15 cm superior to the target anatomy, 0 degree 5 mm laparoscopic trocar entry was performed at the left upper quadrant. The abdomen was insufflated to 15 mmHg which he had tolerated well. Diagnostic laparoscopy demonstrated no injury to bowel, viscera or mesentery. A large defect along the left groin was found and a small defect right side was found. Next, along the epigastrium, 8 mm robot trocar was placed. An 8-mm robotic trocar was placed under direct visualization at the right upper quadrant. An 8 mm port was placed at the left upper quadrant. All trocars were positioned between 10-cm apart from each other. An accessory trocar 12 mm placed along the right upper abdominal wall, lateral. The Ellevation XI robot was primed, draped, prepared for docking along upper abdomen of the patient. The patient was positioned 14 steep Trendelenburg position I then went to the Ellevation Xi console. The account management assistant was at bedside for exchange of the robot arms and equipment. The left indirect inguinal hernia sac was evaginated whereby the peritoneum was scored using Endo scissors with cautery. Once completely reduced into the abdominal cavity, the peritoneal sac of the hernia was stripped. The sac was resected and then passed off for further pathological analysis. The size of the hernia defect was 3 cm with intraoperative films obtained. An inguinal lipoma, subfascial 3 cm was resected. Using a nonabsorbable 2-0 VLOC, the peritoneal defect of the left inguinal hernia sites was closed using a pursestring suture separately. The defect was found to be completely closed with complete reduction of the left indirect inguinal hernia were confirmed. As an onlay, an 11.[address] mesh by Bard was initially cut in half and entered into the abdominal cavity via the 8 mm trocar. The mesh was tacked to the pelvis using nonabsorbable 2-0 VLOC sutures. Next, careful attention along the right groin demonstrated a smaller right ing uinal hernia, indirect. The right inguinal hernia sac was evaginated whereby the peritoneum was scored using Endo scissors with cautery. Once completely reduced into the abdominal cavity, the peritoneal sac of the hernia was resected. The sac was resected and then passed off for further pathological analysis. The size of the hernia defect was 2 cm with intraoperative films obtained. Using a nonabsorbable 2-0 VLOC, the peritoneal defect of the right inguinal hernia site was closed using a running suture. The defect was found to be completely closed with complete reduction of the right indirect inguinal hernia was confirmed. As an onlay, an 11.[address] mesh by Bard was initially cut in half and entered into the abdominal cavity via the 8 mm trocar. The mesh was tacked to the p tari using nonabsorbable 2-0 VLOC 9-inch length sutures. The robot was undocked from the patient's bedside. I then rescrubbed into the case. Dima Naidu with 0 Vicryl was used to close the right lateral upper quadrant 12 mm trocar incision. Insufflation was released from the abdominal cavity and all instruments were removed from the abdominal cavity. The rest of incisions were reapproximated using 4-0 Monocryl in a running subcuticular fashion. Incisions were cleansed using dilute hydrogen peroxide. Liquid glue was applied to the skin. At the end of the procedure, the needle, sponge and instrument counts had been verified correct by the aerospace physiological technician. The patient had tolerated the procedure well and was taken to the postanesthesia care unit in stable condition. Plan - Discharge Summary Discharge Rx Participant: No New Discharge Prescriptions: New Simethicone [Gas-X] 125 mg PO AC-TID PRN #20 capsule PRN Reason: Pain Acetaminophen Tab [Tylenol Tab] 1,000 mg PO Q6HR PRN #30 tablet PRN Reason: Pain Ibuprofen [Motrin] 600 mg PO Q8HR PRN #30 tab PRN Reason: Pain Continue Tamsulosin HCl [Flomax] 0.4 mg PO BID Metoprolol Tartrate [Lopressor] 12.5 mg PO BID Latanoprost/Pf [Latanoprost 0.005% Eye Drop] 1 drop BOTH EYES HS L.acidoph,Paracasei, B.lactis [Probiotic] 1 tab PO DAILY Ascorbic Acid [Vitamin C] 1,000 mg PO DAILY tab Cholecalciferol [Vitamin D3 (25 Mcg = 1000 Iu)] 50 mcg PO DAILY tablet Discharge Medication List Tamsulosin HCl [Flomax] 0.4 mg PO BID 01/18/17 [History] Ascorbic Acid [Vitamin C] 1,000 mg PO DAILY tab 10/27/20 [Rx] Cholecalciferol [Vitamin D3 (25 Mcg = 1000 Iu)] 50 mcg PO DAILY tablet 10/27/20 [Rx] L.acidoph,Paracasei, B.lactis [Probiotic] 1 tab PO DAILY 06/06/22 [History] Latanoprost/Pf [Latanoprost 0.005% Eye Drop] 1 drop BOTH EYES HS 06/06/22 [History] Metoprolol Tartrate [Lopressor] 12.5 mg PO BID 06/06/22 [History] Acetaminophen Tab [Tylenol Tab] 1,000 mg PO Q6HR PRN #30 tablet 06/09/22 [Rx] Ibuprofen [Motrin] 600 mg PO Q8HR PRN #30 tab 06/09/22 [Rx] Simethicone [Gas-X] 125 mg PO AC-TID PRN #20 capsule 06/09/22 [Rx] Follow up Appointment(s)/Referral(s): Royal Kraft MD [STAFF PHYSICIAN] - 06/14/22 Patient Instructions/Handouts: Laparoscopic Herniorrhaphy (IP), Inguinal Hernia Repair (DC) Activity/Diet/Wound Care/Special Instructions: No lifting for 4 pounds in 4 weeks, Jul 10 Using antibacterial soap. May shower. No bathtub soaks for 2 weeks, Jun 23 Use ice along incisions for today to prevent swelling. Use tylenol and ibuprofen scheduled for 3 days Discharge Disposition: HOME SELF-CARE
[2022-06-09 15:57] VITALS: RESP 16
[2022-06-09] MEDS ORDERED: SIMETHICONE 80 MG CHEWABLE PO ONE (16:13)
[2022-06-09 16:38] VITALS: BP 134/78; PULSE 74
== END 2022-06-09 17:10 | disposition home or self-care (01) ==
LOC: OR 09:36
PROVIDERS: ATTEND Surgery Plastic and Reconstructive Surgery
DX: K40.20 Bilateral inguinal hernia, without obstruction or gangrene, not specified as recurrent (principal); G89.18 Other acute postprocedural pain; E78.5 Hyperlipidemia, unspecified; I11.9 Hypertensive heart disease without heart failure; Z87.891 Personal history of nicotine dependence
CPT/HCPCS: 64999; 80053; 85027; 49650; C1781; J2250; J0330; J1644; J2710; J0690; J2405; J3010 ×2; J2795; J1885; J2370; J2704; J2001; 88302

== ENCOUNTER 2024-09-24 18:34 | Emergency (ER) | payer OTHER, MEDICARE ==
--- NOTE | 2024-09-24 19:08 | ED ---
Abdominal Pain HPI - General Source: patient, family, RN notes reviewed Mode of arrival: wheelchair Limitations: no limitations <Albert Cervantes - Last Filed: 09/24/24 19:08> <Robbi John - Last Filed: 09/24/24 23:32> - General Chief Complaint: Abdominal Pain Stated Complaint: vomiting, right abdominal pain Time Seen by Provider: 09/24/24 18:51 - History of Present Illness Initial Comments: Quick note: This is an 84-year-old male presenting with RLQ pain since 1500 and today. Patient states he began having sudden onset RLQ pain, radiating to his lower back with associated nausea/vomiting. States he still has his appendix. Denies hematuria, dysuria, mid back pain. Denies fever, chills, chest pain, dyspnea, diarrhea, hematochezia, melena, hematemesis. Patient states that he is a very claustrophobic person (CT scan). (Albert Cervantes) - Related Data Home Medications Medication Instructions Recorded Confirmed Tamsulosin HCl [Flomax] 0.4 mg PO BID 01/18/17 06/09/22 L.acidoph,Paracasei, B.lactis 1 tab PO DAILY 06/06/22 06/09/22 [Probiotic] Latanoprost/Pf [Latanoprost 0.005% 1 drop BOTH EYES HS 06/06/22 06/09/22 Eye Drop] Metoprolol Tartrate [Lopressor] 12.5 mg PO BID 06/06/22 06/09/22 Previous Rx's Medication Instructions Recorded Ascorbic Acid [Vitamin C] 1,000 mg PO DAILY tab 10/27/20 Cholecalciferol [Vitamin D3 (25 50 mcg PO DAILY tablet 10/27/20 Mcg = 1000 Iu)] Acetaminophen Tab [Tylenol Tab] 1,000 mg PO Q6HR PRN #30 tablet 06/09/22 Ibuprofen [Motrin] 600 mg PO Q8HR PRN #30 tab 06/09/22 Simethicone [Gas-X] 125 mg PO AC-TID PRN #20 capsule 06/09/22 Acetaminophen-Codeine 300-30mg 1 tab PO Q6H PRN 3 Days #12 tablet 09/24/24 [Tylenol w/codeine #3] Ondansetron Odt [Zofran Odt] 4 mg PO Q8HR PRN #20 tab 09/24/24 Allergies Allergy/AdvReac Type Severity Reaction Status Date / Time No Known Allergies Allergy Verified 06/09/22 10:37 Review of Systems ROS Other: All systems not noted in ROS Statement are negative. <Albert Cervantes - Last Filed: 09/24/24 19:08> ROS Other: All systems not noted in ROS Statement are negative. <Robbi John - Last Filed: 09/24/24 23:32> ROS Statement: Those systems with pertinent positive or pertinent negative responses have been documented in the HPI. Past Medical History Past Medical History: Hyperlipidemia, Hypertension, Prostate Disorder, Skin Disorder Additional Past Medical History / Comment(s): hx migraines, ezcema History of Any Multi-Drug Resistant Organisms: None Reported Past Surgical History: Adenoidectomy, Orthopedic Surgery, Tonsillectomy Additional Past Surgical History / Comment(s): duarte knee arthroscopy Past Anesthesia/Blood Transfusion Reactions: No Reported Reaction Past Psychological History: No Psychological Hx Reported Smoking Status: Former smoker Past Alcohol Use History: None Reported Past Drug Use History: None Reported - Past Family History Mother Family Medical History: No Reported History <Albert Cervantes - Last Filed: 09/24/24 19:08> General Exam Limitations: no limitations <Albert Cervantes - Last Filed: 09/24/24 19:08> - General Exam Comments Initial Comments: Visual Physical Exam Vital signs reviewed General: Well-appearing, nontoxic, no acute distress. Head: Normocephalic, atraumatic Eyes: PERRLA, EOMI ENT: Airway patent Chest: Nonlabored breathing Skin: No visual rash, normal skin tone Neuro: Alert and oriented 3 Musculoskeletal: No gross abnormalities (Albert Cervantes) Course Vital Signs 09/24/24 09/24/24 18:41 22:05 Temperature 97.7 F 97.7 F Pulse Rate 78 87 Respiratory 18 17 Rate Blood Pressure 191/72 160/75 O2 Sat by Pulse 97 96 Oximetry Medical Decision Making <Albert Cervantes - Last Filed: 09/24/24 19:08> - Lab Data Result diagrams: 09/24/24 21:00 09/24/24 21:00 <Robbi John - Last Filed: 09/24/24 23:32> - Medical Decision Making I completed the quick note portion of this chart signed KATHY Worthington (Albert Cervantes) - Lab Data Lab Results 09/24/24 09/24/24 09/24/24 Range/Units 21:00 21:00 21:00 WBC 9.8 (3.8-10.6) k/uL RBC 4.33 (4.30-5.90) m/uL Hgb 12.7 L (13.0-17.5) gm/dL Hct 39.2 (39.0-53.0) % MCV 90.4 (80.0-100.0) fL MCH 29.2 (25.0-35.0) pg MCHC 32.3 (31.0-37.0) g/dL RDW 13.9 (11.5-15.5) % Plt Count 179 (150-450) k/uL MPV 7.6 Neutrophils % 91 % Lymphocytes % 5 % Monocytes % 3 % Eosinophils % 0 % Basophils % 0 % Neutrophils # 8.9 H (1.3-7.7) k/uL Lymphocytes # 0.5 L (1.0-4.8) k/uL Monocytes # 0.3 (0-1.0) k/uL Eosinophils # 0.0 (0-0.7) k/uL Basophils # 0.0 (0-0.2) k/uL Sodium 135 L (137-145) mmol/L Potassium 4.5 (3.5-5.1) mmol/L Chloride 100 (98-107) mmol/L Carbon Dioxide 27 (22-30) mmol/L Anion Gap 8 mmol/L BUN 36 H (9-20) mg/dL Creatinine 1.30 H (0.66-1.25) mg/dL Est GFR (CKD-EPI)AfAm 59 (>60 ml/min/1.73 sqM) Est GFR (CKD-EPI)NonAf 51 (>60 ml/min/1.73 sqM) Glucose 204 H (74-99) mg/dL Plasma Lactic Acid Cruz 1.9 (0.7-2.0) mmol/L Calcium 9.8 (8.4-10.2) mg/dL Total Bilirubin 0.7 (0.2-1.3) mg/dL AST 22 (17-59) U/L ALT 17 (4-49) U/L Alkaline Phosphatase 97 (38-126) U/L Total Protein 6.7 (6.3-8.2) g/dL Albumin 4.3 (3.5-5.0) g/dL Amylase 47 (30-110) U/L Lipase 104 (23-300) U/L Urine Color Urine Appearance (Clear) Urine pH (5.0-8.0) Ur Specific [place] (1.001-1.035) Urine Protein (Negative) Urine Glucose (UA) (Negative) Urine Ketones (Negative) Urine Blood (Negative) Urine Nitrite (Negative) Urine Bilirubin (Negative) Urine Urobilinogen (<2.0) mg/dL Ur Leukocyte Esterase (Negative) Urine RBC (0-5) /hpf Urine WBC (0-5) /hpf Urine Mucus (None) /hpf 09/24/24 Range/Units 22:31 WBC (3.8-10.6) k/uL RBC (4.30-5.90) m/uL Hgb (13.0-17.5) gm/dL Hct (39.0-53.0) % MCV (80.0-100.0) fL MCH (25.0-35.0) pg MCHC (31.0-37.0) g/dL RDW (11.5-15.5) % Plt Count (150-450) k/uL MPV Neutrophils % % Lymphocytes % % Monocytes % % Eosinophils % % Basophils % % Neutrophils # (1.3-7.7) k/uL Lymphocytes # (1.0-4.8) k/uL Monocytes # (0-1.0) k/uL Eosinophils # (0-0.7) k/uL Basophils # (0-0.2) k/uL Sodium (137-145) mmol/L Potassium (3.5-5.1) mmol/L Chloride (98-107) mmol/L Carbon Dioxide (22-30) mmol/L Anion Gap mmol/L BUN (9-20) mg/dL Creatinine (0.66-1.25) mg/dL Est GFR (CKD-EPI)AfAm (>60 ml/min/1.73 sqM) Est GFR (CKD-EPI)NonAf (>60 ml/min/1.73 sqM) Glucose (74-99) mg/dL Plasma Lactic Acid Cruz (0.7-2.0) mmol/L Calcium (8.4-10.2) mg/dL Total Bilirubin (0.2-1.3) mg/dL AST (17-59) U/L ALT (4-49) U/L Alkaline Phosphatase (38-126) U/L Total Protein (6.3-8.2) g/dL Albumin (3.5-5.0) g/dL Amylase (30-110) U/L Lipase (23-300) U/L Urine Color Yellow Urine Appearance Cloudy (Clear) Urine pH 6.5 (5.0-8.0) Ur Specific [place] 1.033 (1.001-1.035) Urine Protein Trace H (Negative) Urine Glucose (UA) Trace H (Negative) Urine Ketones 1+ H (Negative) Urine Blood Large H (Negative) Urine Nitrite Negative (Negative) Urine Bilirubin Negative (Negative) Urine Urobilinogen <2.0 (<2.0) mg/dL Ur Leukocyte Esterase Negative (Negative) Urine RBC >182 H (0-5) /hpf Urine WBC 9 H (0-5) /hpf Urine Mucus Occasional H (None) /hpf Disposition <Albert Cervantes - Last Filed: 09/24/24 19:08> Is patient prescribed a controlled substance at d/c from ED?: Yes When asked, does pt state using other controlled substances?: No If prescribed controlled substance>3 days was MAPS reviewed?: Prescribed <3 Days If opioid is for acute pain is fill amount 7 days or less?: Yes Time of Disposition: 23:32 <Robbi John - Last Filed: 09/24/24 23:32> Clinical Impression: Kidney stone Disposition: HOME SELF-CARE Condition: Good Instructions (If sedation given, give patient instructions): Kidney Stones (ED) Additional Instructions: Follow-up with PCP and urology. Report back to ER with any new or worsening symptoms. Drink plenty of water. Prescriptions: Acetaminophen-Codeine 300-30mg [Tylenol w/codeine #3] 1 tab PO Q6H PRN 3 Days #12 tablet PRN Reason: Pain Ondansetron Odt [Zofran Odt] 4 mg PO Q8HR PRN #20 tab PRN Reason: Nausea Referrals: Milena Linton MD [Primary Care Provider] - 1-2 days Romulo Sosa MD [STAFF PHYSICIAN] - 1-2 days
--- NOTE | 2024-09-24 20:11 | XR ---
EXAMINATION TYPE: XR KUB DATE OF EXAM: 09/24/2024 7:44 PM COMPARISON: None CLINICAL INDICATION: Male, 84 years old with history of abdominal pain; [facility] TECHNIQUE: One radiographic view of the abdomen was obtained. FINDINGS: Gaseous dilation of bowel with small bowel measuring up to 3.5 cm which is dilated. There d oes appear to be moderate to large stool colon. Fecal material and gas are demonstrated throughout th e colon and rectum. There is no evidence for organomegaly or pneumoperitoneum. Degeneration changes of the spine with scoliosis changes.. No acute osseous process. No abnormal calcifications are prese nt. IMPRESSION: Gaseous dilated loops of bowel in the abdomen correlate for signs and symptoms of bowel obstruction. There is moderate to large amount stool in the colon. [facility], , 09/24/2024 8:08 PM
[2024-09-24 21:05] LABS: Basophils % (A) 0 %; Eosinophils % (A) 0 %; HCT 39.2 % (39.0-53.0); HGB 12.7 gm/dL (13.0-17.5); Lymphocytes # (A) 0.5 k/uL (1.0-4.8); Lymphocytes % (A) 5 %; MCH 29.2 pg (25.0-35.0); MCHC 32.3 g/dL (31.0-37.0); MCV 90.4 fL (80.0-100.0); Mean Platelet Volume 7.6; Monocytes # (A) 0.3 k/uL (0-1.0); Monocytes % (A) 3 %; Neutrophils # (A) 8.9 k/uL (1.3-7.7); Neutrophils % (A) 91 %; Platelet Count 179 k/uL (150-450); RBC 4.33 m/uL (4.30-5.90); RDW 13.9 % (11.5-15.5); WBC 9.8 k/uL (3.8-10.6)
[2024-09-24 21:18] LABS: ALT 17 U/L (4-49); AST 22 U/L (17-59); African American GFR (CKD) 59 (>60 ml/min/1.73 sqM); Albumin 4.3 g/dL (3.5-5.0); Alkaline Phosphatase 97 U/L (38-126); Amylase 47 U/L (30-110); Anion Gap 8 mmol/L; Blood Urea Nitrogen 36 mg/dL (9-20); Calcium 9.8 mg/dL (8.4-10.2); Carbon Dioxide 27 mmol/L (22-30); Chloride 100 mmol/L (98-107); Glucose 204 mg/dL (74-99); Lipase 104 U/L (23-300); Non-African American GFR(CKD) 51 (>60 ml/min/1.73 sqM); Potassium 4.5 mmol/L (3.5-5.1); Sodium 135 mmol/L (137-145); Total Bilirubin 0.7 mg/dL (0.2-1.3); Total Protein 6.7 g/dL (6.3-8.2)
[2024-09-24] MEDS: ONDANSETRON 4 MG/2 ML VIAL IVP STA (21:25)
[2024-09-24] MEDS: LORazepam 2 MG/ML INJ IV STA (21:25)
[2024-09-24] MEDS: SODIUM CHLORIDE 0.9% 1,000 ML IV ONE (21:26)
--- NOTE | 2024-09-24 22:07 | CT ---
EXAMINATION TYPE: CT abdomen pelvis w con DATE OF EXAM: 09/24/2024 9:51 PM COMPARISON: None CLINICAL INDICATION: Male, 84 years old with history of RLQ pain; Pt c/o pain in lower right quadrant and right flank with vomiting TECHNIQUE: Axial CT abdomen pelvis w con;Sagittal and coronal reformats were created on a separate w orkstation. Contrast used:80ml mL of Isovue 300 with IV Contrast, (none if empty) Oral contrast used: without Oral Contrast (none if empty) CT DLP: mGycm, Automated exposure control for dose reduction was used. FINDINGS: LOWER CHEST: Mild bilateral gynecomastia.r ABDOMEN LIVER: Unremarkable GALLBLADDER AND BILE DUCTS: Unremarkable. PANCREAS: Unremarkable. SPLEEN: Unremarkable. ADRENAL GLANDS: Unremarkable. KIDNEYS AND URETERS: Mild right hydronephrosis secondary obstructing 3 mm calculus at the ureteral pelvic junction/proxima l right ureter. Additional nonobstructing calculi bilaterally measuring 3 mm. Bilateral peripelvic an d renal cortical cysts which do not require follow-up. PELVIS BLADDER: No evidence for wall thickening or mass given limitations of exam. REPRODUCTIVE: Prostate is enlarged in size measuring 5.8 cm in transverse dimension. ABDOMEN & PELVIS STOMACH AND BOWEL: No evidence of bowel obstruction. PERITONEUM/RETROPERITONEUM: No evidence of pneumoperitoneum or free fluid. VASCULATURE: No evidence of aortic aneurysm. MUSCULOSKELETAL: No acute osseous abnormalities. Severe disc degeneration changes are present through out the thoracolumbar spine. No foraminal stenosis is moderate to severe at L4-L5 bilaterally and sev ere right at L3-L4 severe right L2-L3 moderate right L2-3. Scoliosis changes apex L2 on the right. LYMPH NODES: No gross evidence for lymphadenopathy. SOFT TISSUE/ABDOMINAL WALL: Unremarkable IMPRESSION: 1. Mild right hydronephrosis secondary obstructing 3 mm calculus at the ureteral pelvic junction/pro ximal right ureter. Additional nonobstructing calculi bilaterally measuring 3 mm. Bilateral peripelvi c and renal cortical cysts which do not require follow-up. 2. Prostatomegaly correlate with serum PSA. 3. Colonic diverticulosis. 4. 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 [facility], , 09/24/2024 10:05 PM
[2024-09-24] MEDS: METOCLOPRAMIDE 5 MG/ML 2 ML VIAL IVP STA (22:17)
[2024-09-24] MEDS: MORPHINE SULFATE 4 MG/ML SYRINGE IVP STA (22:19)
[2024-09-24 22:53] LABS: Appearance,Urine Cloudy (Clear); Bilirubin,Urine Negative (Negative); Blood,Urine Large (Negative); Color,Urine Yellow; Glucose,Urine (UA) Trace (Negative); Ketones,Urine 1+ (Negative); Leukocyte Esterase,Urine Negative (Negative); Mucus,Urine Occasional /hpf; Nitrite,Urine Negative (Negative); PH, Urine 6.5 (5.0-8.0); Protein,Urine Trace (Negative); RBC,Urine >182 /hpf (0-5); Specific Gravity,Urine 1.033 (1.001-1.035); Urobilinogen,Urine <2.0 mg/dL (<2.0); WBC,Urine 9 /hpf (0-5)
[2024-09-24] MEDS: ACET/COD 300 MG/30 MG STARTER PACK 6 TAB BTL PO STA (23:38)
[2024-09-24 23:53] VITALS: BP 153/75; PULSE 78; RESP 18; TEMP 97.8
== END 2024-09-24 23:52 | disposition home or self-care (01) ==
LOC: EC 18:34
DX: N13.2 Hydronephrosis with renal and ureteral calculous obstruction (principal); Z87.891 Personal history of nicotine dependence
CPT/HCPCS: 36415; 80053; 82150; 83605; 83690; 85025; 81001; 74018; 74177; 99284; 96374; 96375; 96361 ×2; J2060; J2270; J2765; J2405; Q9967